=== PATIENT | female | born 1995 | race Caucasian/White ===

== ENCOUNTER 2023-05-23 10:18 | Outpatient (OUT) | payer OTHER, SELFPAY ==
--- NOTE | 2023-05-23 10:35 | US_ITS ---
[address] [address] Patient Name: JAMES BEGUM MRN: [id number] date: 1995 Sex: F Assigned Patient Location: US Current Patient Location: US Accession/Order Number: [id number] Exam Date: 05/23/2023 10:36 Report Date: 05/23/2023 12:15 At the request of: CAILIN VICTORIA Procedure: US OB anatomy EXAMINATION: US OB anatomy HISTORY: screening, , for antomic survey Z36.89 COMPARISON: No relevant comparison available. TECHNIQUE: Transabdominal sonographic examination was performed for obstetrical and evaluation. FINDINGS: Number: 1 Heart Rate: 143.6 bpm H.B. /min Amniotic Fluid Volume: Subjectively normal position: Cephalic presentation, longitudinal lie Placental Location: Posterior fundal, grade 0. Placental edge is 7.1 cm internal cervical os Cervix Length: 4.2 cm , closed Normal anatomy: Lateral ventricles, cerebellum, posterior fossa, nose, lips, orbits, four-chamber heart, diaphragm, stomach, kidneys, abdominal cord insertion, bladder, umbilical arteries, three-vessel cord, spine, extremities Suboptimal visualization: LVOT BIOMETRY: BPD: 4.7 cm 20 weeks 2 days , 56% HC: 18.1 cm 20 weeks 4 days, 60% AC: 16.0 cm 21 weeks 1 days, 76% FL: 3.3 cm 20 weeks 3 days , 55% EFW:377.6 grams; 13 ounces, 81% FL/AC: 20.9 FL/BPD: 70.9 HC/AC: 1.1 GESTATIONAL AGE: Age by EDC: 20 weeks 1 days Age by current US: 20 weeks 4 days MATY by current US: 10/06/2023 MATY by EDC: 10/09/2023 US/US OB anatomy IMPRESSION: Suboptimal visualization of the LVOT, otherwise normal anatomy scan *Reference: [facility] Practice Guideline for the performance of Obstetric Ultrasound Examinations, January 09, 2007. Electronically authenticated by: KB KNAPP Date: 05/23/2023 12:15
== END 2023-05-23 10:19 | disposition home or self-care (01) ==
PROVIDERS: Visit Provider Midwife
DX: Z36.89 Encounter for other specified antenatal screening (principal); Z3A.20 20 weeks gestation of pregnancy
CPT/HCPCS: 76805

== ENCOUNTER 2023-10-03 04:23 | Inpatient (IN) | payer OTHER, SELFPAY ==
[2023-10-03] VITALS (19 sets, daily range): BP systolic 74–157; BP diastolic 59–92; PULSE 82–103; TEMP 36.1–36.7; O2SAT 96
--- OUTSIDE RECORDS SUMMARY | 2023-10-03 04:27 | XMS_ITS | CCD ---
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 Name Role Phone Spasic, Jax Unavailable Unavailable KATE, DILIA T Unavailable Unavailable Spasic, Jax Unavailable Unavailable MISC, DOCTOR Admitting Unavailable MISC, DOCTOR Attending Unavailable MISC, DOCTOR Consulting Unavailable Kate DO, Dilia T Primary Care Provider FLORO, CAILIN Admitting Unavailable FLORO, CAILIN Attending Unavailable KATE, DILIA T Primary Care Unavailable Kate DO, Dilia T Primary Care Provider FLORO, CAILIN L Attending Unavailable FLORO, CAILIN L Attending Unavailable FLORO, CAILIN L Attending Unavailable FLORO, CAILIN L Referring Unavailable KATE, DILIA T Attending Unavailable FLORO, CAILIN L Attending Unavailable FLORO, CAILIN L Attending Unavailable FLORO, CAILIN L Referring Unavailable FLORO, CAILIN L Attending Unavailable FLORO, CAILIN L Attending Unavailable FLORO, CAILIN L Attending Unavailable FLORO, CAILIN L Attending Unavailable FLORO, CAILIN L Referring Unavailable FLORO, CAILIN L Attending Unavailable FLORO, CAILIN L Attending Unavailable Allergies Allergy Classification Reported Allergen(s) Allergy Type Date of Onset Reaction(s) Facility (1 source) penicillin; Translations: [penicillin] Drug Allergy [facility] (6 sources) Penicillins Propensity to adverse reactions to drug [address], [address] [facility] Medications Current Medications Medication Drug Class(es) Dates Sig (Normalized) Sig (Original) acetaminophen 500 mg oral tablet (1 source) Start: 10-05-2021 1,000 mg, Oral, EVERY 8 HOURS PRN, Starting on Tue10/05/21 at 1007, Until Discontinued, Other, Pain (1-10) Give in addition to any other pain medication ordered at same time for any pain indication.&nbsp ; Maximum dose of acetaminophen is 4000mg from all sources in 24 hours. Alternate ibuprofen and acetaminophen every 4 hours. calcium chloride 0.0014 meq/ml / potassium chloride 0.004 meq/ml / sodium chloride 0.103 meq/ml / sodium lactate 0.028 meq/ml injectable solution (2 sources) Start: 10-05-2021 IntraVENous, at 125 mL/hr, CONTINUOUS, Starting on Tue10/05/21 at 1030, Start: 10-05-2021 lactated ringe rs infusion escitalopram 20 mg oral tablet (7 sources) Serotonin Reuptake Inhibitor Start: 01-10-2023 take 1 tablet by mouth once daily escitalopram (Lexapro) 20 MG tablet Indications: Medication refill TAKE 1 TABLET BY MOUTH EVERY DAY 90 tablet 2 01/10/2023 Active Start: 10-07-2021 take 1 tablet by nakia th once daily escitalopram (LEXAPRO) 20 MG tablet Take 1 tablet by mouth nightly 30 tablet 3 10/07/2021 Active Start: 10-05-2021 escitalopram ( LEXAPRO) tablet 20 mg ibuprofen 800 mg oral tablet (2 sources) Nonsteroidal Anti-inflammatory Drug Start: 10-07-2021 take 1 tablet by mouth every eight hours as needed for pain ibuprofen (ADVIL;MOTRIN) 800 MG tablet Take 1 tablet by mouth every 8 hours as needed for Pain 90 tablet 1 10/07/2021 Active Start: 10-06-2021 take 1 dose by mouth every four hours 800 mg, Oral, EVERY 8 HOURS PRN, Starting on Tue10/06/21 at 1530, Until Discontinued, Other, (Pain 1-10) Give in addition to any other pain medication ordered at same time for any pain indication. Once tolerating PO, discontinue Toradol and begin ibuprofen 8 hours after the final dose of Toradol. Alternate ibuprofen and acetaminophen every 4 hours., lanolin 1000 mg/ml topical cream (1 source) Start: 10-05-2021 Topical, EVERY 1 HOUR PRN, Dry Skin, nipple discomfort, Starting on Tue10/05/21 at 1007, Post-op metroNIDAZOLE 500 mg oral tablet (6 sources) Nitroimidazole Antimicrobial Start: 03-29-2023 take 1 tablet by mouth in the morning metroNIDAZOLE (Flagyl) 500 MG tablet Indications: BV (bacterial vaginosis) Take 1 tablet (500 mg) by mouth in the morning and 1 tablet (500 mg) before bedtime. 14 tablet 0 03/29/2023 Active Start: 10-05-2021 End: 10-07-2021 take 1 tablet by mouth every eight hours metroNIDAZOLE (FLAGYL) tablet 500 mg ondansetron 8 mg disintegrating oral tablet (8 sources) Serotonin-3 Receptor Antagonist Start: 03-01-2023 take 1 tablet by mouth every eight hours for nausea ondansetron ODT (Zofran-ODT) 8 MG disintegrating tablet Indications: Nausea/vomiting in Take 1 tablet (8 mg) by mouth every 8 (eight) hours if needed for nausea or vomiting. 20 tablet 1 03/01/2023 Active Start: 10-07-2021 ondansetron (Z OFRAN) tablet 4 mg Start: 10-05-2021 End: 10-05-2021 4 mg, IntraVENous, EVERY 6 H OURS PRN, Starting on Tue10/05/21 at 1007, Until Discontinued, Nausea, nausea, oxyCODONE hydrochloride 5 mg oral tablet (2 sources) Opioid Agonist Start: 10-07-2021 End: 10-10-2021 take 1 tablet by mouth every six hours as needed for pain oxyCODONE (ROXICODONE) 5 MG immediate release tablet Indications: delivery delivered Take 1 tablet by mouth every 6 hours as needed for Pain for up to 3 days. 12 tablet 0 10/07/2021 10/10/2021 Active Start: 10-05-2021 oxyCODONE (ARMAND ICODONE) immediate release tablet 5 mg oxytocin (PITOCIN) 10 unit bolus from the bag (1 source) Start: 10-05-2021 oxytocin (ROSENDO ENRIKE) 10 unit bolus from the bag MV-Min-Fe Fum-FA-DH A ( 1 PO) (1 source) MV-Min- Fe Fum-FA-DHA ( 1 PO) Take by mouth 0 Active 1000 ml sodium chloride 9 mg /ml injection (2 sources) Start: 10-05-2021 IntraVENous, a t 5-250 mL/hr, PRN, if patient receiving piggyback infusions and maintenance fluids are not ordered OR KVO fluids to protect IV site / prevent frequent line interruptions/ long duration, Starting on Tue10/05/21 at 1007 For piggyback infusion, administer at same rate as piggyback for a total of 25 mL. Enter 25 mL into dose field and piggyback rate into rate field of order. If piggyback is infusing at a rate less than 100 mL/hr, enter 25 mL into dose field and 100 mL/hr into rate field of order. For KVO fluids, enter rate of 20 mL/hr or less into rate field of order. Start: 10-05-2021 take 5-40 mL intrave nously once as needed 5-40 mL, IntraVENous, PRN, Starting on Tue10/05/21 at 1007, Until Discontinued, Line Care, After every IV line use For Line Patency: Peripheral IV = 5 mL; Midline or Central Line = 10 mL/lumen. If following IV push medication, administer flush at same rate as the IV push. Flush volume is determined by type of infusion therapy being given. For non-viscous solutions use: Peripheral IV = 5 mL Midline or Central Line = 10 mL/lumen For viscous solutions (i.e. blood components, parenteral nutrition, contrast media, or after obtaining blood sample) use: Peripheral IV = 10 mL Midline or Central Line = 20 mL/lumen Completed/Discontinued Medications Medication Drug Class(es) Dates Sig (Normalized) Sig (Original) 1 ml carboprost 0.25 mg/ml injection (1 source) Prostaglandin Analog Start: 10-05-2021 250 mcg, IntraMUSCular, PRN, Starting on Tue10/05/21 at 1007, Until Discontinued, bleeding May repeat every 15 minutes up to a cumulative maximum dose of 1000 mcg, at physician's request. Post-op citric acid 66.8 mg/ml / sodium citrate 100 mg/ml oral solution (1 source) Calculi Dissolution Agent, Anti-coagulant Start: 10-05-2021 End: 10-05-2021 citric acid-sodium citrate (BICITRA) solution 30 mL Start: 10-05-2021 End: 10-05-2021 citric acid-sodium citrate ( BICITRA) solution 30 mL 50 ml clindamycin 18 mg/ml injection (1 source) Lincosamide Antibacterial Start: 10-05-2021 End: 10-05-2021 clindamycin (CLEOCIN) 900 mg in dextrose 5 % 50 mL IVPB 1 ml diphenhydrAMINE hydrochloride 50 mg/ml cartridge (1 source) Histamine-1 Receptor Antagonist Start: 10-05-2021 25 mg, IntraVENous, EVERY 6 HOURS PRN, Starting on Tue10/05/21 at 1007, Until Discontinued, Itching, Hives, docusate sodium 100 mg oral capsule (1 source) Start: 10-05-2021 take 100 mg by mouth twice daily 100 mg, Oral, 2 TIMES DAILY, First dose on Tue10/05/21 at 1030, Until Discontinued Do not crush or break. docusate sodium 50 mg / sennosides, correction 8.6 mg oral tablet (1 source) Start: 10-05-2021 take 1 tablet by mouth once daily as needed 1 tablet, Oral, DAILY PRN, Starting on Tue10/05/21 at 1007, Until Discontinued, Constipation, 0.4 ml enoxaparin sodium 100 mg/ml prefilled syringe (1 source) Low Molecular Weight Heparin Start: 10-05-2021 inject 40 mg by subcutaneous injection every twenty-four hours 40 mg, SubCUTAneous, EVERY 24 HOURS, First dose on Tue10/05/21 at 2130, Until Discontinued Indication of Use: Prophylaxis-DVT/PE famotidine (PEPCID) 20 mg in sodium chloride (PF) 10 mL injection (1 source) Start: 10-05-2021 End: 10-05-2021 famotidine (PEPCID) 20 mg in sodium chloride (PF) 10 mL injection 1 ml ketorolac tromethamine 30 mg/ml cartridge (1 source) Nonsteroidal Anti-inflammatory Drug, Cyclooxygenase Inhibitor Start: 10-05-2021 End: 10-06-2021 take 1 dose intravenously once daily for pain Ketorolac is contraindicated in patients with advanced renal impairment and in patients at risk of renal failure due to volume depletion. For 65 years of age and older OR weight less than 50 kg, use 15 mg IV every 6 hours; MAX dose: 60 mg/day. Dose greater than 30 mg must be administered via intramuscular route. Do not administer for more than 5 days. 30 mg, IntraVENous, EVERY 6 HOURS, 4 doses, First dose on Tue10/05/21 at 1530, Last dose on Tue10/06/21 at 0930 Give in addition to any other pain medication ordered at same time for any pain indication. & nbsp;Discontinue when able to take PO ibuprofen. labetalol hydrochloride 5 mg/ml injectable solution (2 sources) beta-Adrenergic Stanley Start: 10-05-2021 End: 10-05-2021 labetalol (NORMODYNE;TRANDAT E) injection 40 mg Start: 10-05-2021 End: 10-05-2021 labetalol (NORMODYNE;TRANDAT E) injection 20 mg 500 ml magnesium sulfate 40 mg/ml injection (5 sources) Start: 10-05-2021 End: 10-05-2021 magnesium sulfate 2000 mg in water 50 mL IVPB Start: 10-05-2021 End: 10-05-2021 magnesium sulfate 4000 mg in 100 mL IVPB premix Start: 10-05-2021 End: 10-06-2021 magnesium sulfate (34799 mg/ 500mL infusion) 1 ml methylergonovine maleate 0.2 mg/ml injection (1 source) Ergot Derivative Start: 10-05-2021 200 mcg, IntraMUSCular, PRN, Starting on Tue10/05/21 at 1007, Until Discontinued, Bleeding PRN for post- hemorrhage, if not hypertensive. 2 ml metoclopramide 5 mg/ml prefilled syringe (1 source) Dopamine-2 Receptor Antagonist Start: 10-05-2021 End: 10-05-2021 metoclopramide (REGLAN) injection 10 mg Start: 10-05-2021 End: 10-05-2021 metoclopramide (REGLAN) inje ction 10 mg miSOPROStol 0.1 mg oral tablet (1 source) Prostaglandin E1 Analog Start: 10-05-2021 800 mcg, Rectal, PRN, 1 dose, Starting on Tue10/05/21 at 1007, Until Discontinued, Post- Hemorrhage Notify Physician prior to administration. Post-op 1 ml nalbuphine hydrochloride 10 mg/ml injection (1 source) Opioid Agonist/Antagonist Start: 10-05-2021 10 mg, IntraVENous, EVERY 4 HOURS PRN, Starting on Tue10/05/21 at 1007, Until Discontinued, or itching, Post-op 1 ml naloxone hydrochloride 0.4 mg/ml injection (1 source) Opioid Antagonist Start: 10-05-2021 0.4 mg, IntraVENous, PRN, Starting on Tue10/05/21 at 1007, Until Discontinued, Opioid Reversal, Post-op vitamin 27-1 MG tablet 1 tablet (1 source) Start: 10-07-2021 take 1 tablet by mouth once daily 1 tablet, Oral, DAILY, First dose on Tue10/07/21 at 0900, Until Discontinued Begin when normal bowel activity resumes. simethicone 80 mg chewable tablet (1 source) Start: 10-05-2021 take 80 mg by mouth every six hours as needed 80 mg, Oral, EVERY 6 HOURS PRN, Starting on Tue10/05/21 at 1007, Until Discontinued, Cramping, Flatulence, 1 ml terbutaline sulfate 1 mg/ml injection (1 source) Start: 10-05-2021 End: 10-05-2021 terbutaline (BRETHINE) injection 0.25 mg Start: 10-05-2021 End: 10-05-2021 terbutaline (BRETHINE) injec tion 0.25 mg Problems Problem Classification Problem Date Documented Da te Episodic/Chronic Immunizations and screening for infectious disease (4 sources) Encounter for screening for other viral diseases; Translations: [ENC SCREENING FOR OTH VIRAL DZ] Onset: 08-27-2019 Episodic Inflammatory diseases of female pelvic organs (2 sources) Bacterial vaginosis; Translations: [Acute vaginitis] 03-29-2023 Episodic Other complications of ; puerperium affecting management of mother (2 sources) delivery - delivered; Translations: [Encounter for delivery without indication] Episodic Other and delivery including normal (4 sources) Term ; Translations: [Encounter for supervision of normal , unspecified, unspecified trimester] Onset: 10-05-2021 Episodic Results Test Name Value Interpretation Reference Range Facility US OB FOLLOW UP TRANSABDOMIN AL APPROACHon 09-21-2023 OB FOLLOW UP TRANSABDOMINAL APPROACH FINDINGS: A single, live intrauterine is present with normal cardiac rate of 145 beats per minute. Normal activity and amniotic fluid volume. Amniotic fluid index is 16.0 cm. Morphology is grossly normal. The cervix is not seen due to positioning. The placenta is posterior, Grade 1, not associated with the cervical os. The current sonographic age is 37 weeks and 4 days, based on the following measurements: BPD 9.2cm ( 37weeks, 4 days) Head Circumference 32.9cm (37 weeks, 3 days) Abdominal Circumference 33.8cm (37 weeks, 5 days) Femur Length 7.4cm (37 weeks, 4 days) Presentation cephalic Placenta Posterior Grade 1 Weight (g) by Percentile 63.7 % * These measurements result in an estimated date of delivery of October 08, 2023 The current estimated weight is 3260 grams ( 7 pound, 3 ounces). IMPRESSION: Single, live intrauterine , current sonographic age of 37 weeks and 4 days, with an estimated date of delivery of October 08, 2023. * Estimated Weight (g) by Percentile is based upon an accurate estimated age based on last menstrual period. TRANSCRIBED BY: ELECTRONICALLY SIGNED BY: Panda Baxter MD Normal Not Available US OB FOLLOW UP TRANSABDOMIN AL APPROACHon 08-03-2023 US OB FOLLOW UP TRANSABDOMINAL APPROACH FINDINGS: A single, live intrauterine is present with normal cardiac rate of 125 beats per minute. Normal activity and amniotic fluid volume. Amniotic fluid index is 17 cm. Morphology is grossly normal. The cervix is long and closed, 2.8 cm. The placenta is anterior, not associated with the cervical os. The current sonographic age is 30 weeks and 4 days, based on the following measurements: BPD 7.6 cm (30 weeks, 3 days) Head Circumference 27.9 cm (30 weeks, 4 days) Abdominal Circumference 26.4 cm (30 weeks, 4 days) Femur Length 5.9 cm (30 weeks, 4 days) Presentation Cephalic Placenta Posterior Grade I Weight (g) by Percentile 42.1 % * These measurements result in an estimated date of delivery of October 08, 2023. The current estimated weight is 1597 grams (3 pounds, 8 ounces). IMPRESSION: 1. Single, live intrauterine , current sonographic age of 30 weeks and 4 days, with an estimated date of delivery of October 08, 2023 (prior exam done March 01, 2023 had MATY October 09, 2023) 2. Cervical length 2.8 cm * Estimated Weight (g) by Percentile is based upon an accurate estimated age based on last menstrual period. TRANSCRIBED BY: ELECTRONICALLY SIGNED BY: Panda Baxter MD Normal Not Available Laboratoryon 03-30-2023 C. glabrata RNA ZULEIKA+probe Ql (Vag fld) Not detected NOT DETECTED [facility] Comment on above: Pilar species C. albicans, C. tropicalis, C. parapsilosis, and/or C. dubliniensis can be detected, but not differentiated, in the Pilar spp. result. Laboratory - Microbiology an d Antimicrobial susceptibilityon 03-30-2023 C. trachomatis rRNA ZULEIKA+probe Ql (Unsp spec) Not detected NOT DETECTED [facility] Pilar sp rRNA Probe Ql (Vag fld) Not detected NOT DETECTED [facility] Lactobacillus crispatus+gasseri+je nsenii + Gardnerella vaginalis + Atopobium vaginae rRNA ZULEIKA+probe Ql (Vag fld) Positive Abnormal NEGATIVE [facility] N. gonorrhoeae rRNA ZULEIKA+probe Ql (Unsp spec) Not detected NOT DETECTED [facility] Comment on above: For additional infor mation, please refer to https://education.[employer]/faq/EDJ671 (This link is being provided for information/ educational purposes only.) T. vaginalis rRNA ZULEIKA+probe Ql (Unsp spec) Not detected NOT DETECTED [facility] No Panel Informationon 03-30 Interpretation and review of laboratory results Abnormal [facility] Performing Organizat ion Information Site ID: QPT Name: [facility] Address: [address] [place] [address], [address] [place] [id number] Director: Mark Perez MD Formerly [facility] US OB < 14 WEEKS EARLYon US OB < 14 WEEKS EARLY EXAMINATION: ULTRASOUND UTERUS, FIRST TRIMESTER REASON FOR EXAMINATION: Amenorrhea. LMP: 01/02/2023 dates from LMP: 8 weeks 2 day. MATY(LMP): 10/09/2023 COMPARISONS: NONE FINDINGS: Transabdominal exam was performed. Transvaginal exam was performed to better visualize the uterine contents and adnexa. On the transabdominal exam, the uterus is anteverted and measures 10.5 x 7.3 x 6.9 cm. A single intrauterine gestational sac is present. A pole is visualized. A yolk sac is visualized. The crown-rump length measures 1.77 cm. The average ultrasound gestational age measures 8 weeks days +/- days. heart rate measures 160 bpm. The maternal right ovary is not identified The maternal left ovary measures 3.6 x 2.5 x 2.1 cm. There is normal sonographic appearance with normal flow. No free fluid is visualized. No sign of subchorionic hemorrhage. There is no abnormal adnexal mass. IMPRESSION: LIVE SINGLE INTRAUTERINE , APPROXIMATELY 8 WEEKS 2 DAYS GESTATIONAL AGE. ELECTRONICALLY SIGNED BY: Angelito Palacios MD Normal Not Available Hemoglobinon 10-06-2021 Hemoglobin (Bld) [Mass/Vol] 8.4 g/dL Low 11.9-15.1 [facility] Comment on above: Performed By: #### H GB #### [facility] [address] [place] [address] Egyptologist: David Franklin MD Hemoglobin (Bld) [Mass/Vol] 8.4 g/dL Low 11.9 - 15.1 g/dL [facility] Interpretation and review of laboratory results Abnormal [facility] Magnesiumon 10-06-2021 Magnesium [Mass/Vol] 4.9 mg/dL Critically high 1.6-2.6 [facility] Comment on above: Performed By: #### L DRE Jennings CDP, CP #### [facility] [address] [place] [address] Egyptologist: David Franklin MD Interpretation and review of laboratory results Abnormal [facility] Magnesium [Mass/Vol] 4.9 mg/dL Critically high 1.6 - 2.6 mg/dL [facility] Magnesium [Mass/Vol] 4.5 mg/dL Critically high 1.6-2.6 [facility] Comment on above: Performed By: #### L D, URI, CDP, CP #### [facility] [address] [place] [address] Egyptologist: David Franklin MD Interpretation and review of laboratory results Abnormal [facility] Magnesium [Mass/Vol] 4.5 mg/dL Critically high 1.6 - 2.6 mg/dL [facility] CBC with Auto Differentialon 10-05-2021 Absolute Eos # 0.03 [facility] Absolute Immature Granulocyte 0.07 [facility] Absolute Lymph # 1.[address] [facility] Absolute Niobrara # 1.06 [facility] Basophils (Bld) [#/Vol] 10*3/uL [facility] Basophils/100 WBC (Bld) 0 % 0 - 2 % [facility] Eosinophils/100 WBC (Bld) 0 % Low 1 - 4 % [facility] Hematocrit (Bld) [Volume fraction] 38.2 % 36.3 - 47.1 % [facility] Hemoglobin (Bld) [Mass/Vol] 12.1 g/dL 11.9 - 15.1 g/dL [facility] Immature granulocytes/100 WBC (Bld) 1 % High 0 [facility] Interpretation and review of laboratory results Abnormal [facility] Lymphocytes/100 WBC (Bld) 15 % Low 24 - 43 % [facility] MCH (RBC) [Entitic mass] 30.5 pg 25.2 - 33.5 pg [facility] MCHC (RBC) [Mass/Vol] 31.7 g/dL 28.4 - 34.8 g/dL [facility] MCV (RBC) [Entitic vol] 96.2 fL 82.6 - 102.9 fL [facility] Monocytes/100 WBC (Bld) 9 % 3 - 12 % [facility] NRBC Automated 0.0 0.0 per 100 WBC [facility] Platelet distribution width (Bld) [Ratio] 13.0 % 11.8 - 14.4 % [facility] Platelet mean volume (Bld) [Entitic vol] 10.1 fL 8.1 - 13.5 fL [facility] Platelets (Bld) [#/Vol] 263 10*3/uL [facility] RBC (Bld) [#/Vol] 3.97 10*6/uL 3.95 - 5.11 m/uL [facility] Segmented neutrophils/100 WBC (Bld) 75 % High 36 - 65 % [facility] Segs Absolute 8.75 High [facility] WBC (Bld) [#/Vol] 11.6 10*3/uL High [facility] CBC with Diffon 10-05-2021 Abs. Basophil <0.03 Normal 0.00-0.20 [facility] Comment on above: Performed By: #### DRE Adam CDP, CP #### [facility] [address] [place] [address] [place] [id number] Egyptologist: David Franklin MD Abs.Imm.Granulocyte 0.07 k/uL Normal 0.00-0.30 [facility] Comment on above: Performed By: #### DRE Adam CDP, CP #### [address] [place], [place] [address] Egyptologist: David Franklin MD Abs.Neutrophil (Seg) 8.75 k/uL High 1.50-8.10 [facility] Comment on above: Performed By: #### DRE Adam CDP, CP #### [facility] [address] [place] [address] Dr. [place], [place] [address] Egyptologist: David Franklin MD Basophils/100 WBC (Bld) 0 % Normal 0-2 [facility] Comment on above: Performed By: #### DRE Adam CDP, CP #### [facility] [address] [place] [address] Dr[place] [id number] Egyptologist: David Franklin MD Eosinophils (Bld) [#/Vol] 0.03 10*3/uL Normal 0.00-0.44 [facility] Comment on above: Performed By: #### L Michaela, URMichael CDP, CP #### [address] [place], [place] [address] Egyptologist: David Franklin MD Eosinophils/100 WBC (Bld) 0 % Low 1-4 [facility] Comment on above: Performed By: #### L Michaela, URMichael, CDP, CP #### [address] [place], [place] [address] Egyptologist: David Franklin MD Erythrocyte distribution width (RBC) [Ratio] 13.0 % Normal 11.8-14.4 [facility] Comment on above: Performed By: #### L Michaela, MARE ERICKSON, CP #### [address] [place], [facility] Egyptologist: David Franklin MD Hematocrit (Bld) [Volume fraction] 38.2 % Normal 36.3-47.1 [facility] Comment on above: Performed By: #### L Michaela, MARE ERICKSON, CP #### [address] [place], [place] [address] Egyptologist: David Franklin MD Hemoglobin (Bld) [Mass/Vol] 12.1 g/dL Normal 11.9-15.1 [facility] Comment on above: Performed By: #### L Michaela, MARE ERICKSON, CP #### [address] [place], [place] [address] Egyptologist: David Franklin MD Immature granulocytes/100 WBC (Bld) 1 % High 0 [facility] Comment on above: Performed By: #### L Michaela, MARE ERICKSON, CP #### [address] [place], [facility] Egyptologist: David Franklin MD Lymphocytes (Bld) [#/Vol] 1.68 10*3/uL Normal 1.10-3.70 [facility] Comment on above: Performed By: #### L Michaela, MARE ERICKSON, CP #### [facility] [address] [place], [facility] Egyptologist: David Franklin MD Lymphocytes/100 WBC (Bld) 15 % Low 24-43 [facility] Comment on above: Performed By: #### L DRE Jennings CDP, CP #### [facility] [address] [place], [facility] Egyptologist: David Franklin MD MCH (RBC) [Entitic mass] 30.5 pg Normal 25.2-33.5 [facility] Comment on above: Performed By: #### DRE Adam CDP, CP #### [address] [place], [facility] Egyptologist: David Franklin MD MCHC (RBC) [Mass/Vol] 31.7 g/dL Normal 28.4-34.8 [facility] Comment on above: Performed By: #### DRE Adam CDP, CP #### [address] [place], [place] [address] Egyptologist: David Franklin MD MCV (RBC) [Entitic vol] 96.2 fL Normal 82.6-102.9 [facility] Comment on above: Performed By: #### DRE Adam CDP, CP #### [address] [place], [place] [address] Egyptologist: David Franklin MD Monocytes (Bld) [#/Vol] 1.06 10*3/uL Normal 0.10-1.20 [facility] Comment on above: Performed By: #### L Michaela, MARE ERICKSON, CP #### [facility] [address] [place], [place] 1455383 Egyptologist: David Farnklin MD Monocytes/100 WBC (Bld) 9 % Normal 3-12 [facility] Comment on above: Performed By: #### L Michaela, DRE CDP, CP #### [facility] [address] [place], [place] [address] Egyptologist: David Franklin MD Neutrophil (Seg) 75 % High 36-65 [facility] Comment on above: Performed By: #### L Michaela, DRE CDP, CP #### [facility] [address] [place], [place] [address] Egyptologist: David Franklin MD NRBC Automated 0.0 per 100 WBC Normal 0.0 [facility] Comment on above: Performed By: #### L Michaela, MARE ERICKSON, CP #### [address] [place], [facility] Egyptologist: David Franklin MD Platelet mean volume (Bld) [Entitic vol] 10.1 fL Normal 8.1-13.5 [facility] Comment on above: Performed By: #### L DRE Jennings CDP, CP #### [address] [place], [place] [address] Egyptologist: David Franklin MD Platelets (Bld) [#/Vol] 263 10*3/uL Normal 138-453 [facility] Comment on above: Performed By: #### L DRE Jennings CDP, CP #### [address] [place], [place] [address] Egyptologist: David Franklin MD RBC (Bld) [#/Vol] 3.97 10*6/uL Normal 3.95-5.11 [facility] Comment on above: Performed By: #### L DRE Jennings CDP, CP #### [facility] [address] [place], [place] 1158783 Egyptologist: David Franklin MD WBC (Bld) [#/Vol] 11.6 10*3/uL High 3.5-11.3 [facility] Comment on above: Performed By: #### L DRE Jennings CDP, CP #### [facility] [address] [place] [address] Egyptologist: David Franklin MD Comp Metabolic Profon 2021 (cont.) Normal [facility] Comment on above: Result Comment: Aver age GFR for 20-29 years old: 116 mL/min/1.73sq m Chronic Kidney Disease: <60 mL/min/1.73sq m Kidney failure: <15 mL/min/1.73sq m eGFR calculated using average adult body mass. Additional eGFR calculator available at: http://www.ConforMIS/multiple_crcl_2011.htm Performed By: #### L DRE Jennings CDP, CP #### [facility] [address] [place] [address] Egyptologist: David Franklin MD Albumin [Mass/Vol] 3.6 g/dL Normal 3.5-5.2 [facility] Comment on above: Performed By: #### DRE Adam CDP, CP #### [facility] [address] [place] [address] Egyptologist: David Franklin MD Albumin/Glob Ratio 1.3 Normal 1.0-2.5 [facility] Comment on above: Performed By: #### DRE Adam CDP, CP #### [facility] [address] [place] [address] Egyptologist: David Franklin MD Alkaline Phos 76 U/L Normal 35-104 [facility] Comment on above: Performed By: #### L DRE Jennings CDP, CP #### [facility] [address] [place] [address] Egyptologist: David Franklin MD ALT [Catalytic activity/Vol] 11 U/L Normal 5-33 [facility] Comment on above: Performed By: #### L D, URI, CDP, CP #### [facility] [address] [place] [address] Dr[address] [place], [place] 0983483 Egyptologist: David Franklin MD Anion gap [Moles/Vol] 19 mmol/L High 9-17 [facility] Comment on above: Performed By: #### L D, URI, CDP, CP #### [address] [place], [place] 7773283 Egyptologist: David Franklin MD AST [Catalytic activity/Vol] 14 U/L Normal <32 [facility] Comment on above: Performed By: #### L D, URI, CDP, CP #### [address] [place], [place] 5726083 Egyptologist: David Franklin MD Bilirubin [Mass/Vol] 0.21 mg/dL Low 0.3-1.2 [facility] Comment on above: Performed By: #### L D, URI, CDP, CP #### [address] [place], [place] 5280383 Egyptologist: David Franklin MD BUN/CRE Ratio 15 Normal 9-20 [facility] Comment on above: Performed By: #### L D, URI, CDP, CP #### [address] [place], [place] 7995483 Egyptologist: David Franklin MD Calcium [Mass/Vol] 9.5 mg/dL Normal 8.6-10.4 [facility] Comment on above: Performed By: #### L D, URI, CDP, CP #### [address] [place] [address] Egyptologist: David Franklin MD Chloride [Moles/Vol] 101 mmol/L Normal 98-107 [facility] Comment on above: Performed By: #### L D, URI, CDP, CP #### [facility] [address] [place] [address] Dr[place], [place] 1328183 Egyptologist: David Franklin MD CO2 [Moles/Vol] 17 mmol/L Low 20-31 [facility] Comment on above: Performed By: #### L D, URI, CDP, CP #### [facility] [address] [place], [place] 3896483 Egyptologist: David Franklin MD Creatinine [Mass/Vol] 0.47 mg/dL Low 0.50-0.90 [facility] Comment on above: Performed By: #### L D, URI, CDP, CP #### [facility] [address] [place] [address] Dr. [place], [place] 2996983 Egyptologist: David Franklin MD GFR, Amer >60 Normal >60 [facility] Comment on above: Performed By: #### L D, URI, CDP, CP #### [facility] [address] [place] [place] [address] Dr[place], [place] 0114083 Egyptologist: David Franklin MD GFR,non Amer >60 Normal >60 [facility] Comment on above: Performed By: #### L D, URI, CDP, CP #### [facility] [address] [place] [address] Dr[place], [place] 5068583 Egyptologist: David Franklin MD Glucose [Mass/Vol] 88 mg/dL Normal 70-99 [facility] Comment on above: Performed By: #### L D, URI, CDP, CP #### [facility] [address] [place], [place] 8562883 Egyptologist: David Franklin MD Potassium [Moles/Vol] 3.9 mmol/L Normal 3.7-5.3 [facility] Comment on above: Performed By: #### L D, URI, CDP, CP #### [facility] [address] [place], [place] 7778183 Egyptologist: David Franklin MD Protein [Mass/Vol] 6.3 g/dL Low 6.4-8.3 [facility] Comment on above: Performed By: #### L Michaela, MARE ERICKSON, CP #### [facility] [address] [place] [address] Egyptologist: David Franklin MD Sodium [Moles/Vol] 137 mmol/L Normal 135-144 [facility] Comment on above: Performed By: #### L Michaela, DRE, MARE, CP #### [facility] [address] [place] [address] Egyptologist: David Franklin MD Staging: Normal [facility] Comment on above: Result Comment: Stag e 1: Some kidney damage normal GFR Stage 2: Mild kidney damage GFR 60-89 Stage 3: Moderate kidney damage GFR 30-59 Stage 4: Severe kidney damage GFR 15-29 Stage 5: Severe kidney damage GFR <15 ESRD - chronic treatment by dialysis or transplant Performed By: #### L Michaela, MARE ERICKSON, CP #### [facility] [address] [place] [address] Egyptologist: David Franklin MD Urea nitrogen [Mass/Vol] 7 mg/dL Normal 6-20 [facility] Comment on above: Performed By: #### L Michaela, DRE, MARE, CP #### [facility] [address] [place] [address] Egyptologist: David Franklin MD Comprehensive metabolic pane [facility] 10-05-2021 Albumin [Mass/Vol] 3.6 g/dL 3.5 - 5.2 g/dL [facility] Albumin/Globulin [Mass ratio] 1.3 {ratio} [facility] ALP (Bld) [Catalytic activity/Vol] 76 U/L 35 - 104 U/L [facility] ALT [Catalytic activity/Vol] 11 U/L 5 - 33 U/L [facility] Anion gap [Moles/Vol] 19 mmol/L High 9 - 17 mmol/L [facility] AST [Catalytic activity/Vol] 14 U/L <32 [facility] Bilirubin [Mass/Vol] 0.21 mg/dL Low 0.3 - 1 .2 mg/dL [facility] Calcium [Mass/Vol] 9.5 mg/dL 8.6 - 10. 4 mg/dL [facility] Chloride [Moles/Vol] 101 mmol/L 98 - 10 7 mmol/L [facility] CO2 [Moles/Vol] 17 mmol/L Low 20 - 31 mmol/L [facility] Creatinine [Mass/Vol] 0.47 mg/dL Low 0.50 - 0.90 mg/dL [facility] Free PSA/Total PSA [Mass fraction] 6.3 g/dL Low 6.4 - 8.3 g/dL [facility] GFR >60 >60 mL/min [facility] GFR Non- >60 >60 mL/min [facility] Glucose [Mass/Vol] 88 mg/dL 70 - 99 mg/dL [facility] Interpretation and review of laboratory results Abnormal [facility] Potassium [Moles/Vol] 3.9 mmol/L 3.7 - 5.3 mmol/L [facility] Sodium [Moles/Vol] 137 mmol/L 135 - 144 mmol/L [facility] Urea nitrogen (BldV) [Mass/Vol] 7 mg/dL 6 - 20 mg/dL [facility] Urea nitrogen/Creatinine (Bld) [Mass ratio] 15 [facility] DRUG SCREEN MULTI URINEon Amphetamine Screen, Ur Negative NEGATIVE [facility] Barbiturate Screen, Ur Negative NEGATIVE [facility] Benzodiazepine Screen, Urine Negative NEGATIVE [facility] Buprenorphine Urine Negative NEGATIVE [facility] Cannabinoid Scrn, Ur Negative NEGATIVE [facility] Cocaine Metabolite, Urine Negative NEGATIVE [facility] Methadone Screen, Urine Negative NEGATIVE [facility] Methamphetamine, Urine Negative NEGATIVE [facility] Opiates, Urine Negative NEGATIVE [facility] Oxycodone Screen, Ur Negative NEGATIVE [facility] Phencyclidine, Urine Negative NEGATIVE [facility] Propoxyphene, Urine Negative NEGATIVE [facility] Tricyclic Antidepressants, Urine Negative NEGATIVE [facility] Comment on above: Drug screen results are to be used for medical purposes only. All positive results are unconfirmed. Testing for employment or legal uses should be sent to a reference laboratory for confirmation. [facility] Drug Scr, Abuse, Uron 2021 Amphetamine(s),Ur Negative Normal [facility] Comment on above: Performed By: #### L D, URI, CDP, CP #### [facility] [address] [place] [address] [place] [id number] Egyptologist: David Franklin MD Barbiturate(s),Ur Negative Normal [facility] Comment on above: Performed By: #### L D, URI, CDP, CP #### [address] [place] [id number] Egyptologist: David Franklin MD Benzodiazepine(s) Negative [facility] Comment on above: Performed By: #### L D, URI, CDP, CP #### [address] [place] [address] Egyptologist: David Franklin MD Buprenorphrine, Ur Negative Normal [facility] Comment on above: Performed By: #### L D, URI, CDP, CP #### [address] [place], [place] [address] Egyptologist: David Franklin MD Cannabinoid(s),Ur Negative Normal [facility] Comment on above: Performed By: #### L D, URI, CDP, CP #### [address] [place] [id number] Egyptologist: David Franklin MD Cocaine Metabolite Negative [facility] Comment on above: Performed By: #### L D, URI, CDP, CP #### [facility] [address] [place] [address] Dr. [place], [place] 2444083 Egyptologist: David Franklin MD Methadone Ql (U) Negative Normal [facility] Comment on above: Performed By: #### L D, URI, CDP, CP #### [facility] [address] [place] [address] Dr. [place], [place] 9257783 Egyptologist: David Franklin MD Methamphetamine, Ur Negative Normal NEG [facility] Comment on above: Performed By: #### L D, URI, CDP, CP #### [facility] [address] [place] [place] [address] Dr[place], [place] [phone] Egyptologist: David Franklin MD Opiate(s), Ur Negative Normal [facility] Comment on above: Performed By: #### L D, URI, CDP, CP #### [address] [place], [place] 1555183 Egyptologist: David Franklin MD Oxycodone, Urine Negative Normal [facility] Comment on above: Performed By: #### L D, URI, CDP, CP #### [address] [place], [place] 8896483 Egyptologist: David Franklin MD Phencyclidine, Ur Negative Normal [facility] Comment on above: Performed By: #### L D, URI, CDP, CP #### [address] [place], [place] 9278883 Egyptologist: David Franklin MD Propoxyphene,Urine Negative Normal NEG [facility] Comment on above: Performed By: #### L D, URI, CDP, CP #### [facility] [address] [place] [address] Dr. [place], [place] [phone] Egyptologist: David Franklin MD Tricyclic antidepressants Screen Ql (U) Negative Normal [facility] Comment on above: Result Comment: Drug screen results are to be used for medical purposes only. All positive results are unconfirmed. Testing for employment or legal uses should be sent to a reference laboratory for confirmation. Performed By: #### L DRE Jennings CDP, CP #### [facility] [address] [place] [address] Egyptologist: David Franklin MD Laboratory - Chemistry and C hemistry - challengeon 10-05-2021 GFR/1.73 sq M.predicted MDRD (S/P/Bld) [Vol rate/Area] [facility] Comment on above: Average GFR for 20-2 9 years old: 116 mL/min/1.73sq m Chronic Kidney Disease: <60 mL/min/1.73sq m Kidney failure: <15 mL/min/1.73sq m eGFR calculated using average adult body mass. Additional eGFR calculator available at: http://www.ConforMIS/multiple_crcl_2012.htm Stage 1: Some kidney damage normal GFR Stage 2: Mild kidney damage GFR 60-89 Stage 3: Moderate kidney damage GFR 30-59 Stage 4: Severe kidney damage GFR 15-29 Stage 5: Severe kidney damage GFR <15 ESRD - chronic treatment by dialysis or transplant Lactate Dehydrogenaseon 09-10 LDH [Catalytic activity/Vol] 158 U/L Normal 135-214 [facility] Comment on above: Performed By: #### L DRE Jennings CDP, CP #### [facility] [address] [place] [address] Egyptologist: David Franklin MD LD 158 U/L 135 - 214 U/L [facility] Magnesiumon 10-05-2021 Magnesium [Mass/Vol] 4.2 mg/dL Critically high 1.6-2.6 [facility] Comment on above: Performed By: #### M G #### [facility] [address] [place] [address] Egyptologist: David Franklin MD Interpretation and review of laboratory results Abnormal [facility] Magnesium [Mass/Vol] 4.2 mg/dL Critically high 1.6 - 2.6 mg/dL [facility] Magnesium [Mass/Vol] 3.9 mg/dL Critically high 1.6-2.6 [facility] Comment on above: Performed By: #### M G #### [facility] [address] [place] [address] Dr. [place], [place] 1575783 Egyptologist: David Franklin MD Interpretation and review of laboratory results Abnormal [facility] Magnesium [Mass/Vol] 3.9 mg/dL Critically high 1.6 - 2.6 mg/dL [facility] No Panel Informationon 10-05 [facility] Protein / Creatinine Ratio, Urineon 10-05-2021 Creatinine, Ur 64.0 mg/dL 28.0 - 217.0 mg/dL [facility] Protein (U) [Mass/Vol] 9 mg/dL [facility] Comment on above: No normal range esta blished. Urine Total Protein Creatinine Ratio 0.14 [facility] Protein,Tot,[place] Uron 2021 Creatinine [Mass/Vol] 64.0 mg/dL Normal 28.0-217.0 [facility] Comment on above: Performed By: #### U RTPRT #### [facility] [address] [place] [address] [place] [address] Egyptologist: David Franklin MD Tot Prot. Conc. 9 mg/dL Normal [facility] Comment on above: Result Comment: No n ormal range established. Performed By: #### U RTPRT #### [facility] [address] [place], [place] 5709783 Egyptologist: David Franklin MD TP/Cre Ratio 0.14 Normal 0.00-0.20 [facility] Comment on above: Performed By: #### U RTPRT #### [facility] [address] [place], [place] 9125083 Egyptologist: David Franklin MD TYPE AND SCREENon 10-05-2021 ABO/Rh Positive [facility] Arm Band Number [id number] [facility] Expiration Date 10/08/2021,2359 [facility] Type + Screenon 10-05-2021 Type + Screen Sample Expiration 10/08/2021,2359 Arm Band Number [id number] ABO/Rh(D) B POSITIVE Antibody Screen NEGATIVE Normal [facility] Comment on above: Performed By: #### T YS #### [facility] [address] [place] [address] Egyptologist: David Franklin MD Uric Acidon 10-05-2021 Urate [Mass/Vol] 5.4 mg/dL Normal 2.4-5.7 [facility] Comment on above: Performed By: #### L D, URI, CDP, CP #### [facility] [address] [place] [address] [place] [address] Egyptologist: David Franklin MD Uric acidon 10-05-2021 Urate [Mass/Vol] 5.4 mg/dL 2.4 - 5.7 mg/dL [facility] Urinalysison 10-05-2021 Bilirubin Urine Negative NEGATIVE [facility] Color, UA Yellow Yellow [facility] Glucose, Ur Negative NEGATIVE [facility] Ketones Ql (U) Negative NEGATIVE [facility] Leukocyte esterase Test strip Ql (U) Negative NEGATIVE [facility] Nitrite, Urine Negative NEGATIVE [facility] pH, UA 7.0 [facility] Protein, UA Negative NEGATIVE [facility] Specific Willow, UA 1.015 [facility] Turbidity UA Clear Clear [facility] Urine Hgb Negative NEGATIVE [facility] Urobilinogen, Urine Normal Normal [facility] Urinalysis, Routineon 2021 Bilirubin, SemiQt,Ur Negative Normal NEG [facility] Comment on above: Performed By: #### U A, YAO #### [facility] [address] [place], [place] [phone] Egyptologist: David Franklin MD Blood, Urine Negative Normal [facility] Comment on above: Performed By: #### U A, YAO #### [facility] [address] [place], [place] 1655883 Egyptologist: David Franklin MD Clarity (U) Clear Normal CLEAR [facility] Comment on above: Performed By: #### U A, YAO #### [facility] [address] [place], [place] 7476583 Egyptologist: David Franklin MD Color (U) Yellow Normal YEL [facility] Comment on above: Performed By: #### U A, YAO #### [facility] [address] [place], [place] [phone] Egyptologist: David Franklin MD Glucose Ql (U) Negative Normal [facility] Comment on above: Performed By: #### U A, YAO #### [facility] [address] [place], [place] 3442983 Egyptologist: David Franklin MD Ketones Ql (U) Negative Normal NEG [facility] Comment on above: Performed By: #### U A, YAO #### [facility] [address] [place], [place] 7477683 Egyptologist: David Franklin MD Leukocyte esterase Test strip Ql (U) Negative Normal [facility] Comment on above: Performed By: #### U A, YAO #### [facility] [address] [place], [place] 2443083 Egyptologist: David Franklin MD Nitrite,Ur Negative Normal [facility] Comment on above: Performed By: #### U A, YAO #### [facility] [address] [place], [place] 5163683 Egyptologist: David Franklin MD PH,Ur 7.0 Normal 5.0-9.0 [facility] Comment on above: Performed By: #### U A, YAO #### [facility] [address] [place], [place] 2958083 Egyptologist: David Franklin MD Protein Ql (U) Negative Normal NEG [facility] Comment on above: Performed By: #### U A, YAO #### [facility] [address] [place], [place] 8441783 Egyptologist: David Franklin MD Spec. Willow,Ur 1.015 Normal 1.010-1.02 0 [facility] Comment on above: Performed By: #### U A, YAO #### [address] [place], [place] 4818483 Egyptologist: David Franklin MD Urobilinogen,Ur Normal Normal NORM [facility] Comment on above: Performed By: #### U A, YAO #### [facility] [address] [place], [place] [phone] Egyptologist: David Franklin MD GBS, External Resulton 09-16 GBS, External Result Negative [facility] [employer] Phone: Verified with Tomy Gibson RN [facility] [employer] Phone: [facility] [employer] Phone: Q - STREP B WITH SUSCEPTon 0 09-16-2021 CULTURE, GROUP B STREP WITH SUSCEPTIBILITY SEE NOTE Normal [facility] Comment on above: Order Comment: [facility] performed at: QPT, [facility], [address] [place] [address], [address] [place] [address], [place], [address], [employer] Flooring Installer: Mark Perez MD [facility] Date/Time: [facility] Results Received Date/Time: [facility] Reported Date/Time: FASTING: NO Result Comment: CULT URE, GROUP B STREP WITH SUSCEPTIBILITY Micro Number: [id number] Test Status: Final Specimen Source: Not given Specimen Quality: Adequate Result: No group B Streptococcus isolated Note per CDC guidelines optimal recovery is achieved by swabbing both the lower vagina and rectum (through the anal sphincter). Performed By: #### 1 [id number] #### [facility] Default [address] [place] [address] [facility] 08-05-2021 US OB Growth FINDINGS: Comparison is made with the prior examination of May 27, 2021. A single, viable intrauterine is present with adequate cardiac (145 beats per minute) and activity and amniotic fluid volume. Amniotic fluid index is 16.0 cm. Morphology is grossly normal. The cervix is long and closed, 4.4 cm. The placenta is anterior, not associated with the cervical os. The current sonographic age is 30 weeks and 2 days, based on the following measurements: BPD 7.5 cm (30 weeks, 1 day) Head Eaaksvssphpjx79.6 cm (30 weeks, 1 day) Abdominal Koraiawtvyyzb70.1 cm (30 weeks, 1 day) Femur Length 5.9 cm (30 weeks, 5 days) PresentationCephalic Placenta Anterior Grade I Weight (g) by Percentile 54.0%* These measurements result in an estimated date of delivery of October 12, 2021. The current estimated weight is 1553 grams (3 pounds, 7 ounces). IMPRESSION: Single, viable intrauterine , current sonographic age of 30 weeks and 2 days, with an estimated date of delivery of October 12, 2021. Estimated date of delivery on the prior examination was October 13, 2021. *Estimated Weight (g) by Percentile is based upon an accurate estimated age based on last menstrual period. Report reported and signed by Panda Baxter on 08/05/2021 1117 Normal [facility] Q - CBC (H/H,RBC,INDICES,WBC ,PLT)on 07-22-2021 Erythrocyte distribution width (RBC) [Ratio] 12.2 % Normal 11.0-15.0 [facility] Comment on above: Order Comment: [facility] performed at: QPT, [facility], [address] [facility], [address] [place], [address], [employer] Flooring Installer: Mark Perez MD [facility] Date/Time: [facility] Results Received Date/Time: [facility] Reported Date/Time: Performed By: #### 1 41A, [id number] #### [facility] [address] [place] [address] Hematocrit (Bld) [Volume fraction] 33.4 % Low 35.0-45.0 [facility] Comment on above: Order Comment: [facility] performed at: [employer], [employer] [facility], [address] [place] [address], [address] [place] [address], [phone], [employer] Floor[employer] Installer: Mark Perez MD [facility] Date/Time: [facility] Results Received Date/Time: [facility] Reported Date/Time: Performed By: #### 1 41A, [id number] #### [facility] [address] [place] [address] Hemoglobin (Bld) [Mass/Vol] 11.3 g/dL Low 11.7-15.5 [facility] Comment on above: Order Comment: [facility] performed at: [employer] [facility], [address] [place] [address], [address] [place] [address], [address] [place] [address], Vinyl Flooring Installer: Mark Perez MD [facility] Date/Time: [facility] Results Received Date/Time: [facility] Reported Date/Time: Performed By: #### 1 41A, [id number] #### [facility] Default [address] [place] [address] MCH (RBC) [Entitic mass] 30.8 pg Normal 27.0-33.0 [facility] Water Quality Specialist Comment on above: Order Comment: [facility] Testing performed at: [employer], [facility], [address] [place] [address], [address] [place] [address], [address] [place] [address], Vinyl Flooring Installer: Mark Perez MD [facility] Date/Time: [facility] Results Received Date/Time: [facility] Reported Date/Time: Performed By: #### 1 41A, [id number] #### [facility] Default [address] [place] [address] MCHC (RBC) [Mass/Vol] 33.8 g/dL Normal 32.0-36.0 [facility] Water Quality Specialist Comment on above: Order Comment: [facility] Testing performed at: [employer], [facility], [address] [place] [address], [address] [place] [address], [address] [place] [address], Vinyl Flooring Installer: Mark Perez MD [facility] Date/Time: [facility] Results Received Date/Time: [facility] Reported Date/Time: Performed By: #### 1 41A, [id number] #### [facility] Default [address] [place] [address] MCV (RBC) [Entitic vol] 91.0 fL Normal 80.0-100.0 [facility] Water Quality Specialist Comment on above: Order Comment: [facility] performed at: [employer], [facility], [address] [place] [address], [address] [place] [address], [address] [place] [address], Vinyl Flooring Installer: Mark Perez MD [facility] Date/Time: [facility] Results Received Date/Time: [facility] Reported Date/Time: Performed By: #### 1 41A, [id number] #### [facility] Default [address] [place] [address] Platelet mean volume (Bld) [Entitic vol] 9.8 fL Normal 7.5-12.5 [facility] Water Quality Specialist Comment on above: Order Comment: [facility] performed at: [employer], [facility], [address] [place] [address], [address] [place] [address], [address] [place] [address], Vinyl Flooring Installer: Mark Perez MD [facility] Date/Time: [facility] Results Received Date/Time: [facility] Reported Date/Time: Performed By: #### 1 41A, [id number] #### [facility] Default [address] [place] [address] Platelets (Bld) [#/Vol] 271 10*3/uL Normal 140-400 [facility] Comment on above: Order Comment: [facility] performed at: [employer], [facility], [address] [place] [address], [address] [place] [address], [address] [place] [address], Vinyl Flooring Installer: Mark Perez MD [facility] Date/Time: [facility] Results Received Date/Time: [facility] Reported Date/Time: Performed By: #### 1 41A, [id number] #### [facility] Default [address] [place] [address] RBC (Bld) [#/Vol] 3.67 10*6/uL Low 3.80-5.10 [facility] Specialist Comment on above: Order Comment: [facility] performed at: [employer], [facility], [address] [place] [address], [address] [place] [address], [address] [place] [address], Vinyl Flooring Installer: Mark Perez MD [facility] Date/Time: [facility] Results Received Date/Time: [facility] Reported Date/Time: Performed By: #### 1 41A, [id number] #### [facility] Default [address] [place] [address] WBC (Bld) [#/Vol] 6.8 10*3/uL Normal 3.8-10.8 [facility] Water Quality Specialist Comment on above: Order Comment: [facility] performed at: [employer], [facility], [facility], [address] [place] [address], [address] [place] [address], Vinyl Flooring Installer: Mark Perez MD [facility] Date/Time: [facility] Results Received Date/Time: [facility] Reported Date/Time: Performed By: #### 1 41A, [id number] #### [facility] Default [address] [place] [address] Q - GLUCOSE,GESTATIONAL SCRE EN(50G)-135 CUTOFFon 07-22-2021 Glucose [Mass/Vol] 120 mg/dL Normal <135 Arielle garcia [place] Water Quality Specialist Comment on above: Order Comment: [facility] performed at: [facility], [facility], [address], [address] [place], [address], Vinyl Flooring Installer: Mark Perez MD [facility] Date/Time: [id number] [facility] Results Received Date/Time: [id number] [facility] Reported Date/Time: [id number] Performed By: #### 1 41A, [id number] #### [facility] Default [address] [place] [address] OB 2nd/3rd Trimesteron OB 2nd/3rd Trimester FINDINGS: Comparison is made with the prior examination of March 02, 2021. A single, viable intrauterine is present with adequate cardiac (151 beats per minute) and activity and amniotic fluid volume. Amniotic fluid index is 18.0 cm. Morphology is grossly normal. The cervix is long and closed, 6.1 cm. The placenta is anterior, not associated with the cervical os. The current sonographic age is 20 weeks and 1 day, based on the following measurements: BPD 4.7 cm (20 weeks, 0 days) Head Mmefasgnvzgob51.7 cm (20 weeks, 1 day) Abdominal Dkxzlgjadgzdf64.2 cm (20 weeks, 3 days) Femur Length 3.3 cm (20 weeks, 1 day) PresentationVariable Placenta Anterior Grade I Weight (g) by Percentile 29.1%* These measurements result in an estimated date of delivery of October 13, 2021. The current estimated weight is 343 grams (12 ounces). IMPRESSION: Single, viable intrauterine , current sonographic age of 20 weeks and 1 day, with an estimated date of delivery of October 13, 2021. Estimated date of delivery on the prior examination was October 15, 2021. *Estimated Weight (g) by Percentile is based upon an accurate estimated age based on last menstrual period. Report reported and signed by Panda Baxter on 05/27/2021 1236 Normal [place] Water Quality Specialist ABO, External Resulton 03-02 ABO, External Result b [employer] Phone: C. Trachomatis, External Res ulton 03-02-2021 C. Trachomatis, External Result Negative [employer] Phone: HIV, External Resulton 03-02 HIV, External Result Non-Reactive JONNIE Zadby Phone: Hepatitis B, External Result on 03-02-2021 Hep B, External Result Non-Reactive [employer] Phone: N. Gonorrhoeae, External Res ulton 03-02-2021 N. Gonorrhoeae, External Result Negative [employer] Phone: No Panel InformationOrdered By: Jyoti Aparicio on 03-02-2021 Verified with Tomy Gibson RN We No Panel Informationon 03-02 [employer] Phone: RPR, External Labon 03-02-20 21 RPR, External Result Non-Reactive [facility] Phone: Rh Factor, External ResultOr dered By: Jyoti Aparicio on 03-02-2021 Rh Factor, External Result Positive [employer] Rubella Titer, External Resu lton 03-02-2021 Rubella Titer, External Result Immune [employer] Phone: COVID-19 PCR (Outpatient/ER discharge)on 08-27-2019 REV FROM REF LAB 08/29/19 Normal [facility] Comment on above: Performed By: #### C VDOUTP #### [facility] [address], [place] [address] Elias Salomon SENT TO REF LAB 08/27/19 Normal [facility] Comment on above: Performed By: #### C VDOUTP #### [facility] [address] [place], [place] [address] Elias Salomon Coding Summaryon 02-16-2017 Coding Summary CODING DATE: 017 [facility] STATUS: Home PAYOR: Medicaid HMO ADMIT DX: REASON FOR VISIT DX: H57.8 Other specified disorders of eye and adnexa FINAL DX: PRINCIPAL: H10.9 Unspecified conjunctivitis SECONDARY: PROCEDURES DOCTOR NAME DATE NOTE: The code number assigned matches the documented diagnosis and / or procedure in the patient's chart. However, the narrative phrase printed from the coding software may appear abbreviated, or result in slightly different terminology. Coded By: Ann Campos Date Saved: 02/16/2017 10:18 am Normal [facility] ED Clinical Summaryon 2016 ED Clinical Summary [facility] ? Urgent [address] [id number] clinical SummaryPERSON INFORMATIONName: MITRA BAILEY Age: 22 Years Sex: FEMALEDOB: [birth year] MRN: Acct#:Visit Reason: UC - Eye Redness; UC - Eye Discharge; RIGHT EYE IRRITATION Arrival:02/13/17 10:29:00 Discharge: 02/13/17 11:04:00LOS: 000 00:35 Check In: 02/13/17 10:29:00 Checkout: 02/13/17 11:04:00Address:[address] [address]UZB: KATE, NEIMANPROVIDER INFORMATIONProvider Role Assigned UnassignedEva Lombardo ED Nurse 02/13/17 10:31:19Spasic Jax VÁSQUEZ ED PA 02/13/17 10:32:45VITALS INFORMATIONVital Sign Triage LatestTemperature TympanicTemperature Temporal ArteryPulse RateO2 SatRespiratory Rate 16 br/min 16 br/minBlood Pressure 118 mmHg/70 mmHg 118 mmHg/70 mmHgMEDICAL INFORMATIONMedications Given:Allergy Information:penicillinPHYSICI AN DOCUMENTATIONPatient: MITRA BAILEY : 22 years Sex: FEMALE : [birth year]Associated Diagnoses: ConjunctivitisAuthor: Lupe Perdomo InformationTime seen: Date & time 02/13/17 10:43:00.History source: Patient.Arrival mode: Private vehicle.History limitation: None.Additional information: Chief Complaint from Nursing Triage Note : Chief Itskldjgy74/05/17 10:39 EST Chief Complaint right eye redness and tearing few days .History of Present IllnessPatient is 22-year-old female redness to the right eye. Patient states redness and tearing of last few days. Patient's boyfriend was same symptoms. Allergy to penicillin. Does wear contact lenses, currently wearing glasses. Allergy to penicillin.Review of SystemsEye symptoms: No diplopia, no blurred vision, no blindness. Additional review of systems information: All other systems reviewed and otherwise negative.Health StatusAllergies:Allergic Reactions (Selected)Severity Not DocumentedPenicillin- Hives..Medications: (Selected)Documented MedicationsDocumentedLexapro 20 mg oral tablet: 20 mg, 1 tab(s), PO, Daily, 0 Refill(s)Misc Prescription: 0 Refill(s)PriLOSEC 20 mg oral delayed release capsule: 20 mg, 1 cap(s), PO, Daily, 0 Refill(s).Past Medical/ Family/ Social HistoryMedical history:No active or resolved past medical history items have been selected or recorded..Surgical history:No active procedure history items have been selected or recorded..Family history:No family history items have been selected or recorded..Social history:Social & Psychosocial FxzlluHjzhsep21/05/2017 Smoking tobacco use: Never (less than 100 in l.Problem list:Active Problems (2)AnxietyGERD with esophagitis.Physical Examination Vital SignsVital Signs02/13/17 10:39 EST Temperature Temporal 36.4 DegC Apical Heart Rate 84 bpm Respiratory Rate 16 br/min Systolic Blood Pressure 118 mmHg Diastolic Blood Pressure 70 mmHg.Jzgcterwcirr53/05/17 10:39 EST Height 160 cm Weight 92.99 kg Body Mass Index 36.32 kg/m2.General: Alert, no acute distress.Skin: Warm, dry.Head: Normocephalic, atraumatic.Eye: Erythematous right conjunctiva with purulent discharge.Cardiovascular: Regular rate and rhythm.Respiratory: Lungs are clear to auscultation, respirations are non-labored, breath sounds are equal, Symmetrical chest wall expansion.Back: Normal range of motion.Musculoskeletal: Normal ROM.Neurological: Normal motor observed, normal speech observed.Lymphatics: No lymphadenopathy.Medical Decision MakingDifferential Diagnosis: Conjunctivitis, corneal abrasion.Physical exam findings consistent with conjunctivitis. Patient arrived with a prescription for Bleph-10. Follow-up provided. Instructions for use provided.Impression and PlanDiagnosisConjunctivitis (Discharge, Medical)PlanPrescriptions: Launch prescriptionsPharmacy:Bleph-1 0 ophthalmic solution (Prescribe): 2 drop(s), OPTH, q3hr, for 7 day(s), 2 drops every 3hrs for 7-10days, continue for 48 hours after symptoms have resolved, 15 mL, 0 Refill(s).Patient was given the following educational materials: Bacterial Conjunctivitis, Csnp-mc-Hxfd.Follow up with: DILIA LOVE Continue on antibiotics until the symptoms have resolved for greater than 48 hoursIf the symptoms persist or fail to resolve call to schedule follow up with Dr. Sánchez digital marketing project manager [phone] office located at [address] [place] [address], otherwise follow-up with your primary care provider in 3-5 days.Counseled: Patient, Regarding diagnosis, Regarding diagnostic results, Regarding treatment plan, Regarding prescription, Patient indicated understanding of instructions.DISCHARGE INFORMATION:Discharge Disposition: HomeDischarge Location: HomePATIENT EDUCATION INFORMATIONInstructions: Bacterial Conjunctivitis, Kbqh-nw-JscoDnvzkt-Up:With: Address: When:DILIA LOVE [address] [id number] [facility] (1)Comments:Continue on antibiotics until the symptoms have resolved for greater than 48 hoursIf the symptoms persist or fail to resolve call to schedule follow up with Dr. Sánchez digital marketing project manager [phone] office located at [address] [place] [address], otherwise follow-up with your primary care provider in 3-5 daysDIAGNOSIS:ConjunctivitisC omment: [facility] ED Note - Physicianon 2016 ED Note - Physician Patient: MITRA BAILEY : 22 years Sex: FEMALE : [birth year]Associated Diagnoses: ConjunctivitisAuthor: Lupe Perdomo InformationTime seen: Date & time 02/13/17 10:43:00.History source: Patient.Arrival mode: Private vehicle.History limitation: None.Additional information: Chief Complaint from Nursing Triage Note : Chief Eyvimgpkl43/05/17 10:39 EST Chief Complaint right eye redness and tearing few days .History of Present IllnessPatient is 22-year-old female redness to the right eye. Patient states redness and tearing of last few days. Patient's boyfriend was same symptoms. Allergy to penicillin. Does wear contact lenses, currently wearing glasses. Allergy to penicillin.Review of SystemsEye symptoms: No diplopia, no blurred vision, no blindness. Additional review of systems information: All other systems reviewed and otherwise negative.Health StatusAllergies:Allergic Reactions (Selected)Severity Not DocumentedPenicillin- Hives..Medications: (Selected)Documented MedicationsDocumentedLexapro 20 mg oral tablet: 20 mg, 1 tab(s), PO, Daily, 0 Refill(s)Misc Prescription: 0 Refill(s)PriLOSEC 20 mg oral delayed release capsule: 20 mg, 1 cap(s), PO, Daily, 0 Refill(s).Past Medical/ Family/ Social HistoryMedical history:No active or resolved past medical history items have been selected or recorded..Surgical history:No active procedure history items have been selected or recorded..Family history:No family history items have been selected or recorded..Social history:Social & Psychosocial YxwygqDvwuiuj52/05/2017 Smoking tobacco use: Never (less than 100 in l.Problem list:Active Problems (2)AnxietyGERD with esophagitis.Physical Examination Vital SignsVital Signs02/13/17 10:39 EST Temperature Temporal 36.4 DegC Apical Heart Rate 84 bpm Respiratory Rate 16 br/min Systolic Blood Pressure 118 mmHg Diastolic Blood Pressure 70 mmHg.Yzcemfipubcu54/05/17 10:39 EST Height 160 cm Weight 92.99 kg Body Mass Index 36.32 kg/m2.General: Alert, no acute distress.Skin: Warm, dry.Head: Normocephalic, atraumatic.Eye: Erythematous right conjunctiva with purulent discharge.Cardiovascular: Regular rate and rhythm.Respiratory: Lungs are clear to auscultation, respirations are non-labored, breath sounds are equal, Symmetrical chest wall expansion.Back: Normal range of motion.Musculoskeletal: Normal ROM.Neurological: Normal motor observed, normal speech observed.Lymphatics: No lymphadenopathy.Medical Decision MakingDifferential Diagnosis: Conjunctivitis, corneal abrasion.Physical exam findings consistent with conjunctivitis. Patient arrived with a prescription for Bleph-10. Follow-up provided. Instructions for use provided.Impression and PlanDiagnosisConjunctivitis (Discharge, Medical)PlanPrescriptions: Launch prescriptionsPharmacy:Bleph-1 0 ophthalmic solution (Prescribe): 2 drop(s), OPTH, q3hr, for 7 day(s), 2 drops every 3hrs for 7-10days, continue for 48 hours after symptoms have resolved, 15 mL, 0 Refill(s).Patient was given the following educational materials: Bacterial Conjunctivitis, Xcys-xt-Sfmf.Follow up with: DILIA LOVE Continue on antibiotics until the symptoms have resolved for greater than 48 hoursIf the symptoms persist or fail to resolve call to schedule follow up with Dr. Sánchez digital marketing project manager [phone] office located at [address] [place] [address], otherwise follow-up with your primary care provider in 3-5 days.Counseled: Patient, Regarding diagnosis, Regarding diagnostic results, Regarding treatment plan, Regarding prescription, Patient indicated understanding of instructions.[Electronically Signed on: 02/13/2017 11:01 EST] Jax Perdomo[Verified on: 02/13/2017 11:01 EST] Jax Perdomo Normal [facility] ED Patient Summaryon 017 ED Patient Summary [facility] ? Urgent [address] [place] [address] pATIENT DISCHARGE INSTRUCTIONSPatient InformationName: MITRA BAILEY Age: 22 YearsDate of : [birth year]MRN: [id number] For Visit: UC - Eye Redness; UC - Eye Discharge; RIGHT EYE IRRITATIONArrival Time: 02/13/17 10:29:00Phone: [facility] Care Physician: Clarence LOVE Physician: Spasic PA, AleksandarComment:Patient EducationWith: Address: When:DILIA LOVE [address] [facility] [address] [place] [phone] Business (1)Comments:Continue on antibiotics until the symptoms have resolved for greater than 48 hoursIf the symptoms persist or fail to resolve call to schedule follow up with Dr. Sánchez digital marketing project manager [phone] office located at [address] [place] [address], otherwise follow-up with your primary care provider in 3-5 daysBacterial ConjunctivitisBacterial conjunctivitis (commonly called pink eye) is redness, soreness, or puffiness (inflammation) of the white part of your eye. It is caused by a germ called bacteria. These germs can easily spread from person to person (contagious). Your eye often will become red or pink. Your eye may also become irritated, watery, or have a thick discharge. HOME CARE? Apply a cool, clean washcloth over closed eyelids. Do this for 10?20 minutes, 3?4 times a day while you have pain.? Gently wipe away any fluid coming from the eye with a warm, wet washcloth or cotton ball.? Wash your hands often with soap and water. Use paper towels to dry your hands.? Do not share towels or washcloths.? Change or wash your pillowcase every day.? Do not use eye makeup until the infection is gone.? Do not use machines or drive if your vision is blurry.? Stop using contact lenses. Do not use them again until your doctor says it is okay.? Do not touch the tip of the eye drop bottle or medicine tube with your fingers when you put medicine on the eye.GET HELP RIGHT AWAY IF:? Your eye is not better after 3 days of starting your medicine.? You have a yellowish fluid coming out of the eye.? You have more pain in the eye.? Your eye redness is spreading.? Your vision becomes blurry.? You have a fever or lasting symptoms for more than 2-3 days.? You have a fever and your symptoms suddenly get worse.? You have pain in the face.? Your face gets red or puffy (swollen).MAKE SURE YOU:? Understand these instructions.? Will watch this condition.? Will get help right away if you are not doing well or get worse.This information is not intended to replace advice given to you by your health care provider. Make sure you discuss any questions you have with your health care provider.Document Released: 01/04/2009 Document Revised: 03/14/2013 Document Reviewed: 01/08/2016[employer] Interactive Patient Education ?2016 [employer].Medication Information:The exam and treatment you received today in the [facility] Emergency Department were for an urgent problem and are not intended as complete care. It is important for you to follow up with a doctor, nurse practitioner, or physician?s office assistant receptionist for ongoing care. If your symptoms become worse or you do not improve as expected and you are unable to reach your usual health care provider, you should return to the Emergency Department, we are available 24 hours a day.For those patients who have received Radiology results, the interpretation of your X-ray as given to you by our Emergency Department physician is only a preliminary report. The Radiologist will review your films and if there is a change in the diagnosis you will be notified by phone. Please make sure you have provided a working phone number so we can reach you if necessary.In the event that you had a lab culture while you were a patient in the Emergency Department, you will be notified by phone if there is a need to change your antibiotic. Please make sure you have provided a working phone number so we can reach you if necessary.[facility] Emergency Department has provided you with a complete list of medications post discharge. Please inform your rug receiving clerk/provider of your visit and for further instruction on these medications. Any specific questions regarding your chronic medications and dosages should be discussed with your primary care physician(s) and/or pharmacist. New MedicationsPrinted Prescriptionssulfacetamide sodium ophthalmic (Bleph-10 ophthalmic solution) 2 Drops Ophthalmic Every 3 hours for 7 Days. 2 drops every 3hrs for 7-10days, continue for 48 hours after symptoms have resolved. Refills: 0.Medications to Continue That Have Not ChangedOther Medicationsescitalopram (Lexapro 20 mg oral tablet) 1 tab(s) Oral every day.Misc Prescriptionomeprazole (PriLOSEC 20 mg oral delayed release capsule) 1 cap Oral every day.Visit InformationVisit Diagnosis:Diagnoses This Visit Conjunctivitis UC - Eye Discharge ([id number]) UC - Eye Redness ([id number])If you received any narcotics, sedation, or any other medication that causes drowsiness for the next 24 hours, unless otherwise directed:? Do not drive a car.? Do not operate machinery such as power tools, lawn mowers, drills, sewing machines, or stoves? Avoid alcoholic beverages and drugs for allergies, nerves, or sleep? Do not make important personal or business decisions or sign any legal documentsReason for Visit:right eye redness and tearing few daysAllergies:Substance Reaction Symptoms Type Commentspenicillin hives DrugVital Signs: Vitals and Measurements this Visit (last charted value for your 02/13/2017 visit) Vital Signs This Visit Temperature Temporal: 36.4 DegC Apical Heart Rate: 84 bpm Respiratory Rate: 16 br/min Systolic Blood Pressure: 118 mmHg Diastolic Blood Pressure: 70 mmHg Measurements This Visit Height: 160 cm Weight: 92.99 kg Body Mass Index: 36.32 kg/w4Zvpypugg List:Problem Onset CommentsAnxietyGERD with esophagitisMajor Tests and Procedures:The following procedures and tests were performed during your ED visit.LaboratoryRadiologyCard iology Viruses or BacteriaWhat?s got you sick?Antibiotics only treat bacterial infections. Viral illnesses cannot be treated with antibiotics. When an antibiotic is not prescribed, ask your healthcare professional for tips on how to relieve symptoms and feel better. Usual CauseIllnessVirusesBacteria Antibiotic NeededCold/Runny Nose NOBronchitis/Chest Cold (in otherwise healthy children and adults) NOWhooping Cough YesFlu NOStrep Throat YesSore Throat (except strep) NOFluid in the middle ear (otitis media with effusion) NOUrinary Tract Infection YesAntibiotics Aren?t Always the Answerwww.cdc.gov/getsmart GET SMART Know When Antibiotics Jared.S. Department of Health and Human ServicesCenters for Disease Control and Prevention December 2013 Normal [facility] Urgent Care [address] 017 Urgent Care Record [facility] ? Urgent [address] [place] [address] pATIENT DISCHARGE INSTRUCTIONSPatient InformationName: MITRA BAILEY Age: 22 YearsDate of : 95MRN: [id number] Visit: UC - Eye Redness; UC - Eye Discharge; RIGHT EYE IRRITATIONArrival Time: 02/13/17 10:29:00[facility]: Clarence LOVE Physician: Toby PerdomoandarComment:Visit Diagnosis:Diagnoses This Visit Conjunctivitis-left UC - Eye Discharge ([id number]) UC - Eye Redness ([id number])If you received any narcotics, sedation, or any other medication that causes drowsiness for the next 24 hours, unless otherwise directed:? Do not drive a car.? Do not operate machinery such as power tools, lawn mowers, drills, sewing machines, or stoves? Avoid alcoholic beverages and drugs for allergies, nerves, or sleep? Do not make important personal or business decisions or sign any legal documentsWith: Address: When:DILIA LOVE [id number] [place] [address] Business (1)Comments:Continue on antibiotics until the symptoms have resolved for greater than 48 hoursIf the symptoms persist or fail to resolve call to schedule follow up with Dr. Sánchez digital marketing project manager [phone] office located at [address] [place] [address], otherwise follow-up with your primary care provider in 3-5 daysMedication Information:The exam and treatment you received today in the [facility] were for an urgent problem and are not intended as complete care. It is important for you to follow up with a doctor, nurse practitioner, or physician?s office assistant receptionist for ongoing care. If your symptoms become worse or you do not improve as expected and you are unable to reach your usual health care provider, you should return to the Emergency Department, we are available 24 hours a day.For those patients who have received Radiology results, the interpretation of your X-ray as given to you by our Urgent Care physician is only a preliminary report. The Radiologist will review your films and if there is a change in the diagnosis you will be notified by phone. Please make sure you have provided a working phone number so we can reach you if necessary.In the event that you had a lab culture while you were a patient in the Urgent Care, you will be notified by phone if there is a need to change your antibiotic. Please make sure you have provided a working phone number so we can reach you if necessary.[facility] has provided you with a complete list of medications post discharge. Please inform your rug receiving clerk/provider of your visit and for further instruction on these medications. Any specific questions regarding your chronic medications and dosages should be discussed with your primary care physician(s) and/or pharmacist. New MedicationsPrinted Prescriptionssulfacetamide sodium ophthalmic (Bleph-10 ophthalmic solution) 2 Drops Ophthalmic Every 3 hours for 7 Days. 2 drops every 3hrs for 7-10days, continue for 48 hours after symptoms have resolved. Refills: 0.Medications to Continue That Have Not ChangedOther Medicationsescitalopram (Lexapro 20 mg oral tablet) 1 tab(s) Oral every day.Misc Prescriptionomeprazole (PriLOSEC 20 mg oral delayed release capsule) 1 cap Oral every day.Visit InformationAllergies:Substanc e Reaction Symptoms Type Commentspenicillin hives DrugVital Signs: Vitals and Measurements this Visit (last charted value for your 02/13/2017 visit) Vital Signs This Visit Temperature Temporal: 36.4 DegC Apical Heart Rate: 84 bpm Respiratory Rate: 16 br/min Systolic Blood Pressure: 118 mmHg Diastolic Blood Pressure: 70 mmHg Measurements This Visit Height: 160 cm Weight: 92.99 kg Body Mass Index: 36.32 kg/e8Yaozxokc List:Problem Onset CommentsAnxietyGERD with esophagitis Patient EducationBacterial ConjunctivitisBacterial conjunctivitis (commonly called pink eye) is redness, soreness, or puffiness (inflammation) of the white part of your eye. It is caused by a germ called bacteria. These germs can easily spread from person to person (contagious). Your eye often will become red or pink. Your eye may also become irritated, watery, or have a thick discharge. HOME CARE? Apply a cool, clean washcloth over closed eyelids. Do this for 10?20 minutes, 3?4 times a day while you have pain.? Gently wipe away any fluid coming from the eye with a warm, wet washcloth or cotton ball.? Wash your hands often with soap and water. Use paper towels to dry your hands.? Do not share towels or washcloths.? Change or wash your pillowcase every day.? Do not use eye makeup until the infection is gone.? Do not use machines or drive if your vision is blurry.? Stop using contact lenses. Do not use them again until your doctor says it is okay.? Do not touch the tip of the eye drop bottle or medicine tube with your fingers when you put medicine on the eye.GET HELP RIGHT AWAY IF:? Your eye is not better after 3 days of starting your medicine.? You have a yellowish fluid coming out of the eye.? You have more pain in the eye.? Your eye redness is spreading.? Your vision becomes blurry.? You have a fever or lasting symptoms for more than 2-3 days.? You have a fever and your symptoms suddenly get worse.? You have pain in the face.? Your face gets red or puffy (swollen).MAKE SURE YOU:? Understand these instructions.? Will watch this condition.? Will get help right away if you are not doing well or get worse.This information is not intended to replace advice given to you by your health care provider. Make sure you discuss any questions you have with your health care provider.Document Released: 01/04/2009 Document Revised: 03/14/2013 Document Reviewed: 01/08/2016[employer] Patient Education ?2016 [employer]. Viruses or BacteriaWhat?s got you sick?Antibiotics only treat bacterial infections. Viral illnesses cannot be treated with antibiotics. When an antibiotic is not prescribed, ask your healthcare professional for tips on how to relieve symptoms and feel better. Usual CauseIllnessVirusesBacteria Antibiotic NeededCold/Runny Nose NOBronchitis/Chest Cold (in otherwise healthy children and adults) NOWhooping Cough YesFlu NOStrep Throat YesSore Throat (except strep) NOFluid in the middle ear (otitis media with effusion) NOUrinary Tract Infection YesAntibiotics Aren?t Always the Answerwww.cdc.gov/getsmart GET SMART Know When Antibiotics [place] Department of Health and Human ServicesCenters for Disease Control and Prevention December 2013 [facility] Vital Signs Date Time Vital Sign Value Performing Clinician Facility 05-25-2023 13:05-0500 Body mass index (BMI) [Ratio] 37.31 kg/m2 Cailin Russell CNM Work Phone: [facility] 05-25-2023 13:05-0500 Body weight 92.53 kg Cailin Russell CNM Work Phone: [facility] 05-25-2023 13:05-0500 Diastolic blood pressure 80 mm[Hg] Cailin Russell CNM Work Phone: [facility] 05-25-2023 13:05-0500 Systolic blood pressure 122 mm[Hg] Cailin Russell CNM Work Phone: [facility] 10-07-2021 07:20-0400 Body temperature 98.6 [degF] Cailin Russell VICE PRESIDENT MEDIA RELATIONS - CNM [facility] 10-07-2021 07:20-0400 Diastolic blood pressure 77 mm[Hg] Cailin Russell VICE PRESIDENT MEDIA RELATIONS - CNM Work Phone: [facility] [employer] 10-07-2021 07:20-0400 Heart rate 100 /min Cailin Russell VICE PRESIDENT MEDIA RELATIONS - CNM Work Phone: [facility] [employer] [facility] 10-07-2021 07:20-0400 Respiratory rate 16 /min Cailin Russell VICE PRESIDENT MEDIA RELATIONS - CNM [facility] 10-07-2021 07:20-0400 Systolic blood pressure 139 mm[Hg] Cailin Russell VICE PRESIDENT MEDIA RELATIONS - CNM Work Phone: [employer] 10-06-2021 13:35-0400 SaO2% (BldA) [Mass fraction] 100 % Cailin Russell VICE PRESIDENT MEDIA RELATIONS - CNM Work Phone: [employer] 10-05-2021 13:48-0400 Body height 157.5 cm Cailin Russell APRN - CNM [facility] 10-05-2021 13:48-0400 Body mass index (BMI) [Ratio] 44.99 kg/m2 Cailin Borjaso VICE PRESIDENT MEDIA RELATIONS - CNM [facility] 10-05-2021 13:48-0400 Body weight 111.58 kg Cailin Russell VICE PRESIDENT MEDIA RELATIONS - CNM Work Phone: [facility] [employer] [facility] Encounters Encounter Date Encounter Type Care Provider Facility Start: 09-28-2023 End: 09-28-2023 ambulatory CAILIN L FLORO Not Available Start: 09-21-2023 End: 09-21-2023 ambulatory CAILIN L FLORO Not Available Start: 09-14-2023 End: 09-14-2023 ambulatory CAILIN L FLORO Not Available Start: 08-31-2023 End: 08-31-2023 ambulatory CAILIN L FLORO Not Available Start: 08-17-2023 End: 08-17-2023 ambulatory CAILIN L FLORO Not Available Start: 08-03-2023 End: 08-03-2023 ambulatory CAILIN L FLORO Not Available Start: 06-22-2023 End: 06-22-2023 ambulatory CAILIN L FLORO Not Available Start: 06-16-2023 End: 06-16-2023 ambulatory DILIA T KATE Not Available Start: 05-25-2023 Bamboo flowsheet Cailin L Berto ro CNM Work Phone: [facility] Start: 05-25-2023 Bamboo flowsheet Cailin L Berto ro CNM Work Phone: [facility] Start: 05-25-2023 End: 05-25-2023 ambulatory CAILIN L FLORO Not Available Start: 05-25-2023 End: 05-25-2023 Subsequent care visit Cailin L Floro CNM Work Phone: [facility] Comment on above: Encounter for superv ision of other normal , second trimester (Primary Dx); History of section Start: 04-27-2023 End: 04-27-2023 ambulatory CAILIN RUSSELL Not Available Start: 03-29-2023 End: 03-29-2023 ambulatory CAILIN RUSSELL Not Available Start: 03-29-2023 End: 03-29-2023 Subsequent care visit Cailin Russell CNM Work Phone: [facility] Comment on above: BV (bacterial vagino sis) (Primary Dx) Start: 03-01-2023 End: 03-01-2023 ambulatory CAILIN RUSSELL Not Available Start: 10-05-2021 End: 10-07-2021 Evaluation and management of inpatient CAILIN RUSSELL [facility] Start: 10-05-2021 End: 10-07-2021 Evaluation and management of inpatient Cailin Russell VICE PRESIDENT MEDIA RELATIONS - CNM Work Phone: [facility] Comment on above: delivery de livered (Primary Dx) Start: 08-27-2019 End: 08-27-2019 Patient encounter procedure DOCTOR MISC Facility: Start: 02-13-2017 End: 02-14-2017 [facility] Procedures Date Procedure Procedure Detail Performing Clinician Start: 03-29-2023 SURESWAB(R) ADVANCED VAGINITIS PLUS, TMA Cailin Russell CNM Work Phone: Start: 10-06-2021 Assay of magnesium Betty Russell VICE PRESIDENT MEDIA RELATIONS - CNM Work Phone: Start: 10-05-2021 Antibody screen Cailin Russell VICE PRESIDENT MEDIA RELATIONS - CNM Work Phone: Start: 10-05-2021 Blood typing serolog ic abo Cailin Russell VICE PRESIDENT [employer]ATIONS - CNM Work Phone: Start: 10-05-2021 End: 10-06-2021 Comprehensive metabolic panel Cailin Russell VICE PRESIDENT [employer]ATIONS - CNM Work Phone: Start: 10-05-2021 Urnls dip stick/tabl et rgnt auto w/o microscopy Cailin Russell VICE PRESIDENT MEDIA [employer]ATIONS - CNM Work Phone: Start: 09-16-2021 GBS, EXTERNAL RESULT Hi storical Provider Start: 03-02-2021 ABO, EXTERNAL RESULT Hi storical Provider Start: 03-02-2021 C. TRACHOMATIS, EXTE RNAL RESULT Historical Provider Start: 03-02-2021 HEPATITIS B, EXTERNA L RESULT Historical Provider Start: 03-02-2021 HIV, EXTERNAL RESULT Hi storical Provider Start: 03-02-2021 N. GONORRHOEAE, EXTE RNAL RESULT Historical Provider Start: 03-02-2021 RH FACTOR, EXTERNAL RESULT Historical Provider Start: 03-02-2021 RPR, EXTERNAL RESULT Hi storical Provider Start: 03-02-2021 RUBELLA TITER, EXTER NAL RESULT Historical Provider H/O: section History of section Cailin Russell CNM Work Phone: Plan of Treatment Date Care Activity Detail Author Start: 11-22-2023 End: 11-22-2023 Patient encounter procedure 11/22/2023 9:00 AM EDT Office Visit [facility] [address] [place] [id number] Cailin Russell, CNM [address] [place] [address] [facility] Start: 06-22-2023 End: 06-22-2023 Patient encounter procedure 06/22/2023 1:00 PM EDT Routine [facility] [address] [place] [phone] Cailin Russell, CNM [address] [place] [address] [facility] Start: 05-25-2023 End: 05-25-2023 Professional / ancillary services management 05/25/2023 1:45 PM EST Ancillary Procedure [facility] [address] [phone] [facility] Start: 05-25-2023 End: 05-25-2023 Patient encounter procedure 05/25/2023 1:00 PM EST Routine [facility] [address] [place] [phone] Cailin Russell CNM [address] [place] [address] [facility] Start: 12-10-2022 Influenza vaccination Influenza Vacc ine (#1) [facility] Start: 12-10-2021 Influenza vaccination Flu vacc ine (Season Ended) [facility] Start: 10-05-2021 End: 10-05-2021 Anesthesia consultation 10/05/2021 Anesthesia Event IP Unit Jasbir [address] APRN - [facility] Start: 01-28-2016 Screening for malign ant neoplasm of cervix Pap smear [facility] Start: 2014 DTaP/Tdap/Td vaccine (1 - Tdap) DTaP/Tdap/Td vaccine (1 - Tdap) [facility] Start: 2013 Hepatitis C screening Hepatitis C sc reen [facility] Start: 2010 HIV screening HIV screen [facility] Start: 2007 Depression Screen Depression Screen [facility] Start: 2006 HPV vaccine (1 - 2-d ose series) HPV vaccine (1 - 2-dose series) [facility] Start: 01-28-2000 COVID-19 Vaccine (1) COVID-19 Vaccin e (1) [facility] Start: 01-28-1996 Varicella vaccine (1 of 2 - 2-dose childhood series) Varicella vaccine (1 of 2 - 2-dose childhood series) [facility] [employer] [facility] End: 10-12-2021 Magnesium [Mass/volume] in Serum or Plasma Magnesium Lab Routine Every 6 Hours (Lab) for 7 Days starting 10/05/2021 until 10/12/2021, 4 completed [employer] [facility] Work Phone: Comment on above: Every 6 Hours (Lab) for 7 Days starting 10/05/2021 until 10/12/2021, 4 completed Oxygen therapy [[facility] [place] [place] [facility]] Initiate Oxygen Therapy Protocol Respiratory Care Routine As Needed until discontinued starting 10/05/2021 [employer] Phone: Comment on above: As Needed until disc ontinued starting 10/05/2021 End: 10-05-2021 RHOGAM RHOGAM Blood Bank Routine One Time for 1 Occurrences starting 10/05/2021 until 10/05/2021 [employer] Phone: Comment on above: One Time for 1 Occur rences starting 10/05/2021 until 10/05/2021 Spirometry panel Incentive tj metry Respiratory Care Routine Every 2hr while awake until discontinued starting 10/05/2021 [employer] Phone: Comment on above: Every 2hr while awak e until discontinued starting 10/05/2021 Immunizations Immunization Date Immunization Notes Care Provider Fa [facility] 10-05-2021 diphtheria, tetanus toxoids and acellular pertussis vaccine, unspecified formulation Cailin Suado [employer] Work Phone: [employer] Work Phone: 10-05-2021 measles, mumps and rubella virus vaccine Cailin [employer] Work Phone: [employer] Work Phone: 01-02-2019 influenza virus vaccine, unspecified formulation Cailin [employer] Work Phone: [facility] Payers Date Payer Category Payer Private Health Insurance BERNARD PELAYO [id number] 2021-Present [address] [place] [address] [id number] 2019 Private Health Insurance [id number] 2017 Unknown [id number] 1995 Unknown [id number] [id number] .173 1995 Unknown [id number] 2.16.840.1.498582.3.579.2 .1259 1995 Unknown [id number] 2.16.840.1.278159.3.579.2 .1259 1995 Unknown [id number] 2.16.840.1.760651.3.579.2 .1259 1995 Unknown [id number] 2.16.840.1.628364.3.579.2 .1259 1995 Unknown [id number] 2.16.840.1.065565.3.579.2 .9 1995 Unknown [id number] 2.16.840.1.317711.3.579.2 .1259 1995 Unknown [id number] 2.16.840.1.471729.3.579.2 .9 1995 Unknown [id number] 2.16.840.1.113064.3.579.2 .1259 1995 Unknown [id number] 2.16.840.1.362743.3.579.2 .9 1995 Unknown [id number] 2.16.840.1.609184.3.579.2 .1259 1995 Unknown [id number] 2.16.840.1.099291.3.579.2 .1259 1995 Unknown [id number] 2.16.840.1.083115.3.579.2 .1259 1995 Unknown [id number] 2.16.840.1.133590.3.579.2 .1259 1995 Unknown [id number] 2.16.840.1.716571.3.579.2 .9 1995 Unknown [id number] 2.16.840.1.899515.3.579.2 .1259 1959 Self-pay Unknown [id number] 2.16.840.1.450890.3.579.2 .593 Social History Date Type Detail Facility Start: 10-05-2021 End: 11-18-2022 Tobacco smoking status NHIS Never smoked tobacco [employer] Phone: Start: 1995 Sex Assigned At Not on file [employer] Phone: Start: 11-18-2022 Tobacco use and exposure Smokeless tobacco non-user [facility] Start: 03-01-2023 Alcohol intake Current drinker of alcohol (finding) [facility] Start: 03-01-2023 History of Social function [facility] Start: 03-01-2023 Tobacco use panel [facility] Start: 11-17-2022 Alcohol Comment Alcohol: less than monthly. Caffeine: 1-2 cups/day [facility] Start: 01-16-2023 [facility] Start: 1995 Sex Assigned At Female [facility] Start: 11-11-2022 Gender identity Identifies as female gender (finding) [facility] Start: 11-11-2022 Sexual orientation Heterosexual (finding) [facility] History of Present illness Narrative 05-25-2023 BERTO Fairchild - 05/25/2023 1:00 PM EST Note Date & Type Note Facility 05-25-2023 History of Presen t illness Narrative Subjective No chief complaint on file. Mitra Sewell is a 28 y.o. at 20w3d with a working estimated date of delivery of 10/09/2023, by Last Menstrual Period who presents for a routine visit. She denies vaginal bleeding, leakage of fluid, decreased movements, or contractions. Her is complicated by: n The following portions of the chart were reviewed this encounter and updated as appropriate: Objective Physical Exam weight: 204 lb Expected Total Weight Gain: 11 lb-19 lb Pregravid BMI: 34.01 BP: 122/80 Urine glucose-negative,protein-negative Labs Imaging Assessment/Plan Diagnoses and all orders for this visit: Encounter for supervision of other normal , second trimester History of section Continue vitamin. Labs reviewed. Follow up in 4 weeks for a routine visit. documented in this encounter [facility] History of Present illness Narrative 03-29-2023 Cailin Russell CNM - 03/29/2023 2:30 PM EST Note Date & Type Note Facility 03-29-2023 History of Presen t illness Narrative Subjective No chief complaint on file. Mitra Sewell is a 28 y.o. at 12w2d with a working estimated date of delivery of 10/09/2023, by Last Menstrual Period who presents for a routine visit. She denies vaginal bleeding, leakage of fluid, decreased movements, and contractions. Her is complicated by: history of section The following portions of the chart were reviewed this encounter and updated as appropriate: Objective Physical Exam , Pregravid BMI: 34.01 Expected Total Weight Gain: 11 lb-19 lb Urine glucose-negative,protein-negative Labs Imaging Assessment/Plan Continue vitamin. Labs reviewed. Order placed for anatomy scan at 20 weeks. Follow up in 4 weeks for a routine visit. documented in this encounter [facility] History of Present illness Narrative 10-07-2021 Tami Gramajo RN - 10/07/2021 1:05 PM Shai Perez RN - 10/06/2021 5:04 PM Shai Perez RN - 10/06/2021 1:38 PM GENET Raymond CNM - 10/06/2021 8:00 AM EDT Note Date & Type Note Facility 10-07-2021 History of Present illness Narrative Patient off unit in stable condition. Departure Mode: with significant other. and secured in infant car seat. Mobility at Departure: ambulatory Discharged to: private residence Time of Discharge: 1305 Patient ambulated to bathroom stand by assist, patient independently showered, new gown and linens provided. Patient ambulated back to chair stand by assist, call light in reach, support person at bedside, denies any further needs at this time Per Dr. Dany rawls to discontinue magnesium C/S Labor and Delivery Post Progress Note SUBJECTIVE: 1st day postop primary for non reassuring heart tones; patient had come in with PROM and hypertension in labor. Is on MgSO4 1/2 gram an hour and doing well now. Flatus:Present BM:no Diet: Tolerating regular diet Ambulation: Ambulateswithout difficulty OBJECTIVE: Vitals: BP 119/68 Pulse 96 Temp 97.4 F (36.3 C) (Oral) Resp 16 Ht 5' 2 (1.575 m) Wt 246 lb (111.6 kg) LMP 01/03/2021 (Exact Date) SpO2 100% Unknown BMI 44.99 kg/m Patient Vitals for the past 24 hrs: BP Temp Temp src Pulse Resp SpO2 10/06/21 1640 119/68 96 10/06/21 1340 125/66 (!) 102 10/06/21 1335 100 % 10/06/21 1330 100 % 10/06/21 1325 100 % 10/06/21 1320 100 % 10/06/21 1315 100 % 10/06/21 1310 99 % 10/06/21 1305 100 % 10/06/21 1300 100 % 10/06/21 1255 100 % 10/06/21 1250 100 % 10/06/21 1245 100 % 10/06/21 1240 120/71 100 100 % 10/06/21 1235 100 % 10/06/21 1230 100 % 10/06/21 1225 100 % 10/06/21 1220 100 % 10/06/21 1215 100 % 10/06/21 1210 100 % 10/06/21 1205 100 % 10/06/21 1200 100 % 10/06/21 1155 100 % 10/06/21 1150 100 % 10/06/21 1145 126/75 99 100 % 10/06/21 1140 100 % 10/06/21 1135 100 % 10/06/21 1130 100 % 10/06/21 1125 100 % 10/06/21 1120 100 % 10/06/21 1115 99 % 10/06/21 1110 99 % 10/06/21 1105 99 % 10/06/21 1100 121/64 91 98 % 10/06/21 1055 100 % 10/06/21 1050 99 % 10/06/21 1045 100 % 10/06/21 1040 99 % 10/06/21 1035 99 % 10/06/21 1030 100 % 10/06/21 1025 100 % 10/06/21 1020 99 % 10/06/21 1015 99 % 10/06/21 1010 99 % 10/06/21 1005 100 % 10/06/21 1000 100 % 10/06/21 0955 100 % 10/06/21 0950 100 % 10/06/21 0945 127/79 100 % 10/06/21 0940 96 100 % 10/06/21 0935 100 % 10/06/21 0930 100 % 10/06/21 0925 100 % 10/06/21 0920 100 % 10/06/21 0915 100 % 10/06/21 0910 100 % 10/06/21 0905 100 % 10/06/21 0900 100 % 10/06/21 0855 100 % 10/06/21 0850 100 % 10/06/21 0845 132/73 100 % 10/06/21 0840 93 100 % 10/06/21 0835 100 % 10/06/21 0830 100 % 10/06/21 0825 100 % 10/06/21 0820 100 % 10/06/21 0815 100 % 10/06/21 0810 100 % 10/06/21 0805 100 % 10/06/21 0800 100 % 10/06/21 0720 97.4 F (36.3 C) Oral 16 10/06/21 0641 117/66 (!) 103 99 % 10/06/21 0636 97 % 10/06/21 0631 96 % 10/06/21 0630 16 10/06/21 0626 97 % 10/06/21 0621 96 % 10/06/21 0616 96 % 10/06/21 0611 97 % 10/06/21 0606 96 % 10/06/21 0601 96 % 10/06/21 0556 98 % 10/06/21 0551 96 % 10/06/21 0546 97 % 10/06/21 0541 112/65 (!) 101 97 % 10/06/21 0536 97 % 10/06/21 0531 98 % 10/06/21 0530 16 10/06/21 0526 97 % 10/06/21 0521 98 % 10/06/21 0516 99 % 10/06/21 0511 100 % 10/06/21 0506 100 % 10/06/21 0501 100 % 10/06/21 0456 99 % 10/06/21 0451 99 % 10/06/21 0446 99 % 10/06/21 0441 139/74 (!) 110 99 % 10/06/21 0436 99 % 10/06/21 0431 98 % 10/06/21 0430 16 10/06/21 0426 99 % 10/06/21 0421 99 % 10/06/21 0416 99 % 10/06/21 0411 99 % 10/06/21 0406 99 % 10/06/21 0401 98 % 10/06/21 0356 98 % 10/06/21 0351 99 % 10/06/21 0346 99 % 10/06/21 0341 128/71 (!) 105 99 % 10/06/21 0336 98 % 10/06/21 0331 99 % 10/06/21 0330 98 F (36.7 C) 16 10/06/21 0326 98 % 10/06/21 0321 98 % 10/06/21 0316 99 % 10/06/21 0311 99 % 10/06/21 0306 98 % 10/06/21 0301 99 % 10/06/21 0256 98 % 10/06/21 0251 99 % 10/06/21 0246 99 % 10/06/21 0241 120/61 (!) 105 98 % 10/06/21 0236 98 % 10/06/21 0231 98 % 10/06/21 0230 16 10/06/21 0226 99 % 10/06/21 0221 99 % 10/06/21 0216 99 % 10/06/21 0211 99 % 10/06/21 0206 99 % 10/06/21 0201 99 % 10/06/21 0156 98 % 10/06/21 0151 99 % 10/06/21 0146 99 % 10/06/21 0141 118/62 (!) 103 98 % 10/06/21 0136 98 % 10/06/21 0131 98 % 10/06/21 0130 16 10/06/21 0126 98 % 10/06/21 0121 99 % 10/06/21 0116 98 % 10/06/21 0111 99 % 10/06/21 0106 98 % 10/06/21 0101 98 % 10/06/21 0056 97 % 10/06/21 0051 97 % 10/06/21 0046 97 % 10/06/21 0041 118/65 (!) 106 98 % 10/06/21 0036 99 % 10/06/21 0031 99 % 10/06/21 0026 99 % 10/06/21 0021 99 % 10/06/21 0016 100 % 10/06/21 0011 100 % 10/06/21 0006 99 % 10/06/21 0001 99 % 10/05/21 2356 99 % 10/05/21 2351 99 % 10/05/21 2346 99 % 10/05/21 2343 110/60 (!) 108 10/05/21 2341 99 % 10/05/21 2336 99 % 10/05/21 2331 99 % 10/05/21 2330 16 10/05/21 2326 99 % 10/05/21 2321 99 % 10/05/21 2316 99 % 10/05/21 2311 99 % 10/05/21 2306 99 % 10/05/21 2301 99 % 10/05/21 2256 99 % 10/05/21 2251 99 % 10/05/21 2246 99 % 10/05/21 2241 (!) 111/59 (!) 110 99 % 10/05/21 2236 100 % 10/05/21 2231 99 % 10/05/21 2230 16 10/05/21 2226 99 % 10/05/21 2221 99 % 10/05/21 2216 99 % 10/05/21 2211 99 % 10/05/21 2206 99 % 10/05/21 2201 99 % 10/05/21 2156 99 % 10/05/212150 99 % 10/05/212146 (!) 117/57 (!) 112 10/05/21 214 99 % 10/05/21 214 99 % 10/05/21 213 99 % 10/05/21 213 99 % 10/05/21 2130 99 % 10/05/212125 100 % 10/05/212124 100 % 10/05/212120 99 % 10/05/212115 100 % 10/05/212110 99 % 10/05/212105 99 % 10/05/212100 99 % 10/05/212055 99 % 10/05/212050 99 % 10/05/212045 99 % 10/05/212040 121/72 (!) 113 98 % 10/05/216 98 % 10/05/212030 98 % 10/05/21 2030 16 98 % 10/05/216 99 % 10/05/212020 98 % 10/05/212015 98 % 10/05/212010 98 % 10/05/21 2006 97 % 10/05/21 2001 98 % 10/05/21 1956 98 % 10/05/21 195 98 % 10/05/21 1946 98 % 10/05/21 194 (!) 117/56 (!) 112 98 % 10/05/21 1938 94 % 10/05/21 1936 100 % 10/05/21 1931 100 % 10/05/21 1930 98 F (36.7 C) Oral 16 10/05/21 1926 100 % 10/05/21 1921 100 % 10/05/21 1916 100 % 10/05/21 1911 100 % 10/05/21 1906 100 % 10/05/21 1901 99 % 10/05/21 1841 124/71 (!) 110 100 % 10/05/21 1836 99 % 10/05/21 1833 16 10/05/21 1831 98 % 10/05/21 1826 98 % 10/05/21 1821 99 % 10/05/21 1816 98 % 10/05/21 1811 100 % 10/05/21 1806 100 % 10/05/21 1801 100 % 10/05/21 1756 99 % 10/05/21 1751 99 % 10/05/21 1746 99 % 10/05/21 174 118/70 (!) 106 100 % ABDOMEN: No scars, normal bowel sounds, soft, non-distended, non-tender, no masses palpated, no hepatosplenomegally INCISION: dressing in place, clean, dry and intact GENITAL/URINARY: External Genitalia: General appearance; normal, Hair distribution; normal, Lesions absent Cor: RRR no Murmurs Pulmonary: clear to auscultation anterior and posterior Extremities: no Clubbing cyanosis or ecchymosis DATA: CBC: Lab Results Component Value Date WBC 11.6 10/05/2021 RBC 3.97 10/05/2021 HGB 8.4 10/06/2021 HCT 38.2 10/05/2021 MCV 96.2 10/05/2021 MCH 30.5 10/05/2021 MCHC 31.7 10/05/2021 RDW 13.0 10/05/2021 PLT 263 10/05/2021 MPV 10.1 10/05/2021 ASSESSMENT: Principal Problem: Term Plan: delivered Active Problems: delivery delivered hypertension S/P C/S post op day # 1 PLAN: Continue to wean mag and closely observe. CNM to room for assessment. Patient is uncomfortable and breathing with contractions. She is requesting an epidural at this time. Labs reviewed. LDH normal, UPC ratio is 0.14, blood pressures are elevated. I have initiated orders for Labetalol algorithm and magnesium sulfate. I discussed with patient the [facility] guidelines of transferring to a tertiary care hospital when in need of magnesium sulfate administration. After explaining this to patient and answering all questions, patient refuses to be transferred at this time. There is also the possibility of not accepting her in [facility] as she is 4-5/90/0 station and ruptured and unstable transfer at this time. I offered patient to call [facility] and see if they would accept, and again she refused and states I want to get an epidural, and I want to stay here for delivery. : Dr Nance updated. documented in this encounter [facility] Phone: Evaluation note Note Date & Type Note Facility Evaluation note Diagnosis Term - Primary delivery delivered delivery, without mention of indication, delivered, with or without mention of antepartum condition [facility] Phone: Evaluation note Note Date & Type Note Facility Evaluation note Diagnosis BV (bacterial vaginosis)- Primary Unspecified vaginitis and vulvovaginitis documented in this encounter [facility] Evaluation note Note Date & Type Note Facility Evaluation note Diagnosis Encounter for supervision of other normal , second trimester- Primary History of section Other postprocedural status documented in this encounter [facility] Hospital Discharge instructions Instructions Note Date & Type Note Facility Hospital Discharge instructions Tami Gramajo RN - 10/07/2021 Follow-up with your OB doctor as specified. [facility] OB Department phone: Dr. Goyo THOMSONM Dr. Tran Lombardo [address] [facility] [address] Speed or Flavio Valentina Russell, MSN, VICE PRESIDENT MEDIA RELATIONS, CNM [address] [address] DIET Eat a well balanced diet focusing on foods high in fiber and protein. Drink plenty of fluids especially water. To avoid constipation you may take a mild stool softener as recommended by your doctor or budget examiner. ACTIVITY Gradually increase your activity. Resume exercise regimen only after advice by your doctor or budget examiner. Avoid lifting anything heavier than a gallon of milk for SIX weeks. Avoid driving until your doctor or budget examiner has given their approval. Rise slowly from a lying to sitting and then a standing position. Climb stairs one at a time. Use caution when carrying your baby up and down the stairs. NO SEXUAL Activity for 4-6 weeks or until advised by your doctor; Nothing in vagina: intercourse, tampons, or douching. Be prepared to discuss family planning at your follow-up OB visit. You may feel tired or have a lack of energy. You may continue your vitamin to replenish nutrients post delivery. Nap when baby naps to catch up on sleep. EMOTIONS You may feel leiva, sad, teary, & overwhelmed. Contact your OB provider if you feel you may be showing signs of depression, or have thoughts of harming yourself or your . If will not stop crying, contact another adult for help or place infant in their crib on their back and take a break. NEVER shake your infant. BLEEDING Vaginal bleeding will decrease in amount over the next few weeks. You will notice that as your activity increases, your flow may increase. This is your body's way of telling you, you need to take things easier and rest more often. Call your care provider if you are saturating more than one maxi pad in an hour & resting does not help. BREAST CARE Take medications as recommended by your doctor or budget examiner for pain If you develop a warm, red, tender area on your breast or develop a fever contact your OB provider. For moms: If you become engorged, feeding may be more difficult or painful for 1-2 days. You may find it helpful to hand express some milk so that the infant can latch on more easily. While , continue to take your vitamins as directed by your doctor or budget examiner. Refer to the booklet in the folder/binder for more information. If you feel you need more assistance or have questions, please call Diana Jesus IBCLC, clinical documentation consultant, at or the OB department to schedule an appointment or phone consultation. For more FREE help, visit the Support Group on Tuesday evenings at 7 pm in the OB department. For NON- moms: You may apply ice packs to your breasts over your bra for twenty minutes at a time for comfort. Avoid stimulation to your breasts, when showering allow the water to strike your back not your breasts. Wear a good fitting bra until your milk dries, such as a sports bra. DINA CARE Use the dina-bottle after toileting until bleeding stops. Cleanse your perineum from front to back If used, stitches will dissolve in 4-6 weeks. You may use a sitz bath or soak in a clean tub as needed for comfort. Kegel exercises will help restore bladder control. SWELLING Try to keep your legs elevated when you are sitting. When lying down keep your legs elevated. When wearing stocking or socks, make sure they are not too tight. WHEN TO CALL THE DOCTOR If you have a temp of 100.6 or more. If your bleeding has increased and you are saturating a pad in an hour. Your abdomen is tender to touch. You are passing blood clots bigger than the size of a lemon. If you are experiencing extreme weakness or dizziness. If you are having flu-like symptoms such as achy muscles or joints. There is a foul smell or a green color to your vaginal bleeding. If you have pain that cannot be relieved. You have persistent burning or frequency with urination. Call if you have concerns about your well-being. You are unable to sleep, eat, or are having thoughts of harming yourself or your baby. You have swelling, bleeding, drainage, foul odor, redness, or warmth in/around your incision or stitches. You have a red, warm, tender area in your calf. documented in this encounter [facility] [employer] Phone: Summary Purpose Family History No Family History Records FoundNo Family History Records FoundNo Family History Records FoundNo Family History Records FoundNo Family History Records Found Advance Directives No Advanced Directives Records FoundLatest Code Status on File Code Status Date Activated Date Inactivated Comments Full Code 10/05/2021 4:43 AM 10/05/2021 10:07 AM Additional Source Comments INFORMATION SOURCE (unrecogn ized section and content) DATE CREATED AUTHOR 10/04/2017 [facility] DATE CREATED AUTHOR AUTHOR'S ORGANIZ ATION 08/29/2019 [facility] DATE CREATED AUTHOR AUTHOR'S ORGANIZ ATION 09/21/2021 [facility] DATE CREATED AUTHOR AUTHOR'S ORGANIZ ATION 10/08/2021 [facility] DATE CREATED AUTHOR AUTHOR'S ORGANIZ ATION 09/29/2023 [facility] EPIC Reason for Visit (unrecogniz ed section and content) Reason Comments Rupture of Membranes Contractions Specialty Diagnoses / Procedures Referred By Mago t Referred To Contact Diagnoses Term Cailin Russell APRN - RADHA [address] [place] [address] [facility] [address] [place] [address] Referral ID Status Reason Start Date Expiration Date Visits Re quested Visits Authorized [id number] 1 1 Ordered Prescriptions (unrec ognized section and content) Prescription Sig Dispensed Refills Start Date End Da te escitalopram (LEXAPRO) 20 MG tablet Take 1 tablet by mouth nightly 30 tablet 3 10/07/2021 ibuprofen (ADVIL;MOTRIN) 800 MG tablet Take 1 tablet by mouth every 8 hours as needed for Pain 90 tablet 1 10/07/2021 oxyCODONE (ROXICODONE) 5 MG immediate release tabletIndications:Peter an delivery delivered Take 1 tablet by mouth every 6 hours as needed for Pain for up to 3 days. 12 tablet 0 10/07/2021 10/10/2021 Scheduled Active and Recently Administ ered Medications (unrecognized section and content) Medication Order 10/05/2021 10/06/2021 10/07/2021 citric acid-sodium citrate (BICITRA) solution 30 mL (COMPLETED) 30 mL, Oral, ONCE, 1 dose, On Tue10/05/21 at 0830, Give prior to epidural placement., Labor and Delivery 0803 (Given - Provider: Jyoti Aparicio RN) clindamycin (CLEOCIN) 900 mg in dextrose 5 % 50 mL IVPB (CANCELED) 900 mg, IntraVENous, EVERY 8 HOURS, First dose on Tue10/05/21 at 0645, Until Discontinued, Antimicrobial Indications: Other, Other Abx Indication: questionable PROM, STAT 0656 (New Bag - Provider: Jaime Hurst, MARIBEL)0838 (Stopped - Provider: Jaime Hurst, MARIBEL) docusate sodium (COLACE) capsule 100 mg 100 mg, Oral, 2 TIMES DAILY, First dose on Tue10/05/21 at 1030, Until Discontinued, Do not crush or break., 1309 (Not Given - Provider: Zina Gibson RN - Reason: Patient/family refused)2118 (Given - Provider: Jessika Sullivan RN) 928 (Given - Provider: Olga Perez RN)2142 (Given - Provider: Jaime Hurst, MARIBEL) 08 (Given - Provider: Tami Gramajo, MARIBEL)2099 (Due) enoxaparin (LOVENOX) injection 40 mg 40 mg, SubCUTAneous, EVERY 24 HOURS, First dose on Tue10/05/21 at 2130, Until Discontinued, Indication of Use: Prophylaxis-DVT/PE, 2116 (Given - Provider: Jessika Sullivan RN) 2142 (Given - Provider: Jaime Hurst RN) 2129 (Due) escitalopram (LEXAPRO) tablet 20 mg 20 mg, Oral, NIGHTLY, First dose on Tue10/05/21 at 2200, Until Discontinued 2152 (Given - Provider: Jessika Sullivan RN) 2142 (Given - Provider: Jaime Hurst RN) 2099 (Due) famotidine (PEPCID) 20 mg in sodium chloride (PF) 10 mL injection (COMPLETED) 20 mg, IntraVENous, ONCE, 1 dose, On Tue10/05/21 at 0830, Give 60 minutes before surgery., Labor and Delivery 08 (Given - Provider: Jyoti Aparicio RN) ketorolac (TORADOL) injection 30 mg (COMPLETED) Ketorolac is contraindicated in patients with advanced renal impairment and in patients at risk of renal failure due to volume depletion. For 65 years of age and older OR weight less than 50 kg, use 15 mg IV every 6 hours; MAX dose: 60 mg/day. Dose greater than 30 mg must be administered via intramuscular route. Do not administer for more than 5 days., 30 mg, IntraVENous, EVERY 6 HOURS, 4 doses, First dose on Tue10/05/21 at 1530, Last dose on Tue10/06/21 at 0930, Give in addition to any other pain medication ordered at same time for any pain indication. Discontinue when able to take PO ibuprofen., 1525 (Given - Provider: Jyoti Aparicio RN)2116 (Given - Provider: Jessika Sullivan, MARIBEL) 0328 (Given - Provider: Melissa Fernández, RN)0929 (Given - Provider: Olga Perez RN) labetalol (NORMODYNE;TRANDATE) injection 20 mg (COMPLETED) 20 mg, IntraVENous, ONCE, 1 dose, On Tue10/05/21 at 0615, STAT 0606 (Given - Provider: Jaime Hurst RN) labetalol (NORMODYNE;TRANDATE) injection 40 mg (COMPLETED) 40 mg, IntraVENous, ONCE, 1 dose, On Tue10/05/21 at 0700, STAT 0643 (Given - Provider: Jaime Hurst RN) magnesium sulfate 2000 mg in water 50 mL IVPB (COMPLETED) 2,000 mg, IntraVENous, at 300 mL/hr, Administer over 10 Minutes, ONCE, On Tue10/05/21 at 0645, For 1 dose 0724 (New Bag - Provider: Jyoti Aparicio RN)0734 (Stopped - Provider: Zina Gibson RN) magnesium sulfate 4000 mg in 100 mL IVPB premix (COMPLETED) 4,000 mg, IntraVENous, at 600 mL/hr, Administer over 10 Minutes, ONCE, On Tue10/05/21 at 0645, For 1 dose 0712 (New Bag - Provider: Jaime Hurst RN)0839 (Stopped - Provider: Jaime Hurst RN) metoclopramide (REGLAN) injection 10 mg (COMPLETED) 10 mg, IntraVENous, ONCE, 1 dose, On Tue10/05/21 at 0830, Give 60 minutes before surgery., Labor and Delivery 0803 (Given - Provider: Jyoti Aparicio RN) metroNIDAZOLE (FLAGYL) tablet 500 mg 500 mg, Oral, Every 8 hours, 6 doses, First dose on Tue10/05/21 at 1000, Last dose on Tue10/06/21 at 2200, Antimicrobial Indications: Surgical Prophylaxis 1023 (Not Given - Provider: Jyoti Aparicio RN - Reason: Other - Comment: start at 1400, antibiotic given at surgery)1346 (Given - Provider: Jyoti Aparicio RN)2119 (Given - Provider: Jessika Sullivan, MARIBEL) 0639 (Given - Provider: Melissa Fernández, MARIBEL)1645 (Given - Provider: Olga Perez RN)2142 (Given - Provider: Jaime Hurst, MARIBEL) vitamin 27-1 MG tablet 1 tablet 1 tablet, Oral, DAILY, First dose on Tue10/07/21 at 0900, Until Discontinued, Begin when normal bowel activity resumes., 0801 (Given - Provider: Tami Gramajo, MARIBEL) rho(D) immune globulin (HYPERRHO S/D) injection 300 mcg 300 mcg, IntraMUSCular, ONCE, 1 dose, On Tue10/05/21 at 1030, 1149 (Not Given - Provider: Zina Gibson, MARIBEL - Reason: Order parameters not met - Comment: pt positve blood type) terbutaline (BRETHINE) injection 0.25 mg (COMPLETED) 0.25 mg, SubCUTAneous, ONCE, 1 dose, On Tue10/05/21 at 0645, STAT 0627 (Given - Provider: Jaime Hurst, MARIBEL) owjlnah-dqlppu-zrcbn pertussis (BOOSTRIX) injection 0.5 mL 0.5 mL, IntraMUSCular, PRIOR TO DISCHARGE, 1 dose, Starting on Tue10/05/21 at 1007, Until Discontinued, If not previously administered during at 27-36 weeks as recommended by CDC., Continuous Medication Order 10/05/2021 10/06/2021 10/07/2021 lactated ringers infusion IntraVENous, at 125 mL/hr, CONTINUOUS, Starting on Tue10/05/21 at 1030 1020 (Stopped - Provider: Jyoti Aparicio, MARIBEL)2335 (New Bag - Provider: Melissa Fernández RN) lactated ringers infusion IntraVENous, at 125 mL/hr, CONTINUOUS, Starting on Tue10/05/21 at 1030, 1019 (New Bag - Provider: Jyoti Aparicio RN - Comment: total volume is 125 of 2 seperate ivs)1138 (Rate/Dose Change - Provider: Zina Gibson RN) magnesium sulfate (40863 mg/500mL infusion) (CANCELED) 1,000 mg/hr (25 mL/hr), IntraVENous, CONTINUOUS, Starting on Tue10/05/21 at 0645, Until Tue10/05/21 at 1007, 1000 mg = 1 gram; 2000 mg = 2 grams; 20,000 mg = 20 grams 0734 (New Bag - Provider: Jyoti Aparicio, RN)0734 (NoRateChange - Provider: Kinga Lombardo APRN - JUICE TESTER) magnesium sulfate (76485 mg/500mL infusion) (CANCELED) 2,000 mg/hr (50 mL/hr), IntraVENous, CONTINUOUS, Starting on Tue10/05/21 at 1030, Until Tue10/06/21 at 1339, 1000 mg = 1 gram; 2000 mg = 2 grams; 20,000 mg = 20 grams 1017 (New Bag - Provider: Jyoti Aparicio, RN)1716 (New Bag - Provider: Zina Gibson RN) 0407 (New Bag - Provider: Melissa Fernández RN) magnesium sulfate (49178 mg/500mL infusion) (CANCELED) 1,000 mg/hr (25 mL/hr), IntraVENous, CONTINUOUS, Starting on Tue10/06/21 at 0715, Until Tue10/06/21 at 1339, 1000 mg = 1 gram; 2000 mg = 2 grams; 20,000 mg = 20 grams, For 12 hours 0749 (Rate/Dose Change - Provider: Olga Perez RN) PRN Medication Order 10/05/2021 10/06/2021 10/07/2021 0.9 % sodium chloride infusion IntraVENous, at 5-250 mL/hr, PRN, if patient receiving piggyback infusions and maintenance fluids are not ordered OR KVO fluids to protect IV site / prevent frequent line interruptions/ long duration, Starting on Tue10/05/21 at 1007, For piggyback infusion, administer at same rate as piggyback for a total of 25 mL. Enter 25 mL into dose field and piggyback rate into rate field of order. If piggyback is infusing at a rate less than 100 mL/hr, enter 25 mL into dose field and 100 mL/hr into rate field of order. For KVO fluids, enter rate of 20 mL/hr or less into rate field of order., acetaminophen (TYLENOL) tablet 1,000 mg 1,000 mg, Oral, EVERY 8 HOURS PRN, Starting on Tue10/05/21 at 1007, Until Discontinued, Other, Pain (1-10), Give in addition to any other pain medication ordered at same time for any pain indication. Maximum dose of acetaminophen is 4000mg from all sources in 24 hours. Alternate ibuprofen and acetaminophen every 4 hours., 1637 (Given - Provider: Zina Gibson RN) 0929 (Given - Provider: Olga Perez, MARIBEL)1848 (Given - Provider: Olga Perez RN) 0255 (Given - Provider: Jaime Hurst, MARIBEL) carboprost (HEMABATE) injection 250 mcg 250 mcg, IntraMUSCular, PRN, Starting on Tue10/05/21 at 1007, Until Discontinued, bleeding, May repeat every 15 minutes up to a cumulative maximum dose of 1000 mcg, at physician's request., Post-op diphenhydrAMINE (BENADRYL) injection 25 mg 25 mg, IntraVENous, EVERY 6 HOURS PRN, Starting on Tue10/05/21 at 1007, Until Discontinued, Itching, Hives, ibuprofen (ADVIL;MOTRIN) tablet 800 mg 800 mg, Oral, EVERY 8 HOURS PRN, Starting on Tue10/06/21 at 1530, Until Discontinued, Other, (Pain 1-10), Give in addition to any other pain medication ordered at same time for any pain indication. Once tolerating PO, discontinue Toradol and begin ibuprofen 8 hours after the final dose of Toradol. Alternate ibuprofen and acetaminophen every 4 hours., , 2141 (Given - Provider: Jaime Hurst, MARIBEL) 0801 (Given - Provider: Tami Gramajo RN) lansinoh lanolin ointment Topical, EVERY 1 HOUR PRN, Dry Skin, nipple discomfort, Starting on Tue10/05/21 at 1007, Post-op measles, mumps & rubella vaccine (MMR) injection 0.5 mL 0.5 mL, SubCUTAneous, PRN, 1 dose, Starting on Tue10/05/21 at 1007, Until Discontinued, if non immune or equivical, methylergonovine (METHERGINE) injection 200 mcg 200 mcg, IntraMUSCular, PRN, Starting on Tue10/05/21 at 1007, Until Discontinued, Bleeding, PRN for post- hemorrhage, if not hypertensive., miSOPROStol (CYTOTEC) tablet 800 mcg 800 mcg, Rectal, PRN, 1 dose, Starting on Tue10/05/21 at 1007, Until Discontinued, Post- Hemorrhage, Notify Physician prior to administration., Post-op nalbuphine (NUBAIN) injection 10 mg 10 mg, IntraVENous, EVERY 4 HOURS PRN, Starting on Tue10/05/21 at 1007, Until Discontinued, or itching, Post-op naloxone (NARCAN) injection 0.4 mg 0.4 mg, IntraVENous, PRN, Starting on Tue10/05/21 at 1007, Until Discontinued, Opioid Reversal, Post-op ondansetron (ZOFRAN) injection 4 mg (CANCELED) 4 mg, IntraVENous, EVERY 6 HOURS PRN, Starting on Tue10/05/21 at 0544, Until Tue10/05/21 at 1007, Nausea, Labor and Delivery 0653 (Given - Provider: Jaime Hurst, MARIBEL) ondansetron (ZOFRAN) injection 4 mg 4 mg, IntraVENous, EVERY 6 HOURS PRN, Starting on Tue10/05/21 at 1007, Until Discontinued, Nausea, nausea, ondansetron (ZOFRAN) tablet 4 mg 4 mg, Oral, EVERY 6 HOURS PRN, Starting on Tue10/07/21 at 0240, Until Discontinued, Nausea, Vomiting 0255 (Given - Provider: Jaime Hurst, MARIBEL) oxyCODONE (ROXICODONE) immediate release tablet 10 mg(Linked Group 1) 10 mg, Oral, EVERY 4 HOURS PRN, Starting on Tue10/05/21 at 1007, Until Discontinued, Pain Severe (7-10), oxyCODONE (ROXICODONE) immediate release tablet 5 mg(Linked Group 1) 5 mg, Oral, EVERY 4 HOURS PRN, Starting on Tue10/05/21 at 1007, Until Discontinued, Pain Moderate (4-6), oxytocin (PITOCIN) 10 unit bolus from the bag 166.7 mL (rounded from 166.6667 mL = 10 Units), IntraVENous, PRN, 1 dose, Starting on Tue10/05/21 at 1003, Until Discontinued, Bleeding, Post- use ONLY after delivery of baby/ excessive bleeding/ uterine atony. Bolus for bag to infuse at 909 ml/hour for 11 minutes (10 units in 167ml). oxytocin (PITOCIN) 30 units in 500 mL infusion (COMPLETED) 166 bonifacio-units/min (166 mL/hr), IntraVENous, PRN, 1 dose, Starting on Tue10/05/21 at 0544, Until Tue10/05/21 at 0840, Bleeding, For Post Use Only. Give after delivery of placenta. Following Bolus from bag administration, reduce the rate to166 mL/hr and administer remaining bag, Post Delivery 0840 (New Bag - Provider: Kinga Lombardo, VICE PRESIDENT MEDIA RELATIONS - JUICE TESTER - Comment: open per gravity)0915 (Rate/Dose Change - Provider: Lolis Guerrero, VICE PRESIDENT MEDIA RELATIONS - JUICE TESTER) oxytocin (PITOCIN) 30 units in 500 mL infusion 87.3 bonifacio-units/min (87.3 mL/hr), IntraVENous, CONTINUOUS PRN, Starting on Tue10/05/21 at 1003, Until Tue10/07/21 at 1002, Bleeding, Post- use ONLY after delivery of baby/ excessive bleeding/ uterine atony. Following Bolus from bag administration, reduce the rate to 87.3 mL/hr and administer remaining 20 units over 229 minutes to complete the infusion of 30 units in 500 mL. Do NOT administer more than 1 bag of pitocin without a new order from the physician. 1016 (New Bag - Provider: Jyoti Aparicio RN - Comment: started in or)1138 (Stopped - Provider: Zina Gibson RN) sennosides-docusate sodium (SENOKOT-S) 8.6-50 MG tablet 1 tablet 1 tablet, Oral, DAILY PRN, Starting on Tue10/05/21 at 1007, Until Discontinued, Constipation, simethicone (MYLICON) chewable tablet 80 mg 80 mg, Oral, EVERY 6 HOURS PRN, Starting on Tue10/05/21 at 1007, Until Discontinued, Cramping, Flatulence, sodium chloride flush 0.9 % injection 5-40 mL 5-40 mL, IntraVENous, PRN, Starting on Tue10/05/21 at 1007, Until Discontinued, Line Care, After every IV line use, For Line Patency: Peripheral IV = 5 mL; Midline or Central Line = 10 mL/lumen. If following IV push medication, administer flush at same rate as the IV push. Flush volume is determined by type of infusion therapy being given. For non-viscous solutions use: Peripheral IV = 5 mL Midline or Central Line = 10 mL/lumen For viscous solutions (i.e. blood components, parenteral nutrition, contrast media, or after obtaining blood sample) use: Peripheral IV = 10 mL Midline or Central Line = 20 mL/lumen, 1138 (Given - Provider: Zina Gibson RN) Linked Groups Order Group 1: oxyCODONE (ROXICODONE) immediate release tablet 5 mgJump to med 5 mg, Oral, EVERY 4 HOURS PRN, Starting on Tue10/05/21 at 1007, Until Discontinued, Pain Moderate (4-6), Or oxyCODONE (ROXICODONE) immediate release tablet 10 mgJump to med 10 mg, Oral, EVERY 4 HOURS PRN, Starting on Tue10/05/21 at 1007, Until Discontinued, Pain Severe (7-10), Care Teams (unrecognized sec tion and content) Metal Mine Inspector Relationship Specialty Start Date End Date Rosa Loven DO [place] [id number] [address] PCP - General Family Medicine 10/05/21 Metal Mine Inspector Relationship Specialty Start Date End Date Rosa Loven DO [place] [id number] [address] PCP - General Family Medicine 08/17/22 Metal Mine Inspector Relationship Specialty [place] [id number] [address] PCP - General Family Medicine 08/17/22 Metal Mine Inspector Relationship Specialty Start Date End Date Rosa Loven [place] [id number] [address] PCP - General Family Medicine 08/17/22 FOR RECORDS PERTAINING TO PATIENTS WHO ARE OR HAVE BEEN ENROLLED IN A CHEMICAL DEPENDENCY/SUBSTANCEABUSE PROGRAM, SOME INFORMATION MAY BE OMITTED. This clinical summary was aggregated from multiple sources. Caution should be exercised in using it in the provision of clinical care. This summary normalizes information from multiple sources, and as a consequence, information in this document may materially change the coding, format and clinical context of patient data. In addition, data may be omitted in some cases. CLINICAL DECISIONS SHOULD BE BASED ON THE PRIMARY CLINICAL RECORDS. [employer] [facility] provides no warranty or guarantee of the accuracy or completeness of information in this document.
[2023-10-03] MEDS: LACTATED RINGER'S SOLUTION 1,000 ML 1000 ML IV ×2 (04:50→06:06)
[2023-10-03 05:29] LABS: Basophils Percent Auto 0.1 % (0.2-2.0); Eosinophils Percent Auto 0.3 % (0.9-7.0); Hematocrit 34.1 % (36.0-48.0); Hemoglobin 11.2 g/dL (12.0-16.0); Immature Granulocytes Abs Auto 0.04 10^3/uL (0.00-0.03); Immature Granulocytes Pct Auto 0.4 % (0.0-0.5); Lymphocytes Absolute Auto 1.8 10^3/uL (1.2-3.8); Lymphocytes Percent Auto 20.6 % (20.5-60.0); Mean Corpuscular HGB Conc 32.8 g/dL (29.9-35.2); Mean Corpuscular Hemoglobin 29.1 pg (26.7-34.0); Mean Corpuscular Volume 88.6 fL (81.0-99.0); Mean Platelet Volume 10.6 fL (9.5-13.5); Monocytes Absolute Auto 0.7 10^3/uL (0.3-0.8); Monocytes Percent Auto 7.8 % (1.7-12.0); Neutrophils Absolute Auto 6.3 10^3/uL (1.4-6.5); Neutrophils Percent Auto 70.8 % (43.0-75.0); Platelet Count 266 10^3/uL (150-450); Red Blood Count 3.85 10^6/uL (4.20-5.40); Red Cell Distribution Width 15.1 % (11.0-15.0); White Blood Count 8.9 10^3/uL (4.0-11.0)
[2023-10-03 05:30] LABS: Bilirubin Urine NEGATIVE (NEGATIVE); Blood Urine TRACE-I (NEGATIVE); Clarity Urine CLEAR (CLEAR); Color Urine LT. YELLOW (YELLOW); Glucose Urine UA NEGATIVE (NEGATIVE); Ketones Urine NEGATIVE (NEGATIVE); Leukocyte Esterase Urine NEGATIVE (NEGATIVE); Nitrite Urine NEGATIVE (NEGATIVE); Protein Urine NEGATIVE (NEG/TRACE); Specific Gravity Urine 1.025 (1.005-1.025); Urobilinogen Urine 0.2 EU/dL (0.2-1.0); pH Urine 6.5 (5.0-9.0)
[2023-10-03 05:36] LABS: WBC Urine NONE SEEN #/HPF (NONE SEEN)
[2023-10-03 05:37] LABS: Amorphous Sediment Urine FEW; Bacteria Urine NONE SEEN #/HPF (NONE SEEN); Cast Seen? NONE SEEN #/LPF (NONE SEEN); Crystals Seen? None Seen #/HPF (None Seen); Mucus Urine NONE SEEN (NONE SEEN); Squamous Epithelial Cell Urine FEW #/LPF (NONE/RARE); Urine Culture Indicated NO
[2023-10-03 05:39] LABS: Amphetamine Screen Urine NEGATIVE (NEGATIVE); Barbiturates Screen Urine NEGATIVE (NEGATIVE); Benzodiazepines Screen Urine NEGATIVE (NEGATIVE); Buprenorphine Screen Urine NEGATIVE (NEGATIVE); Cannabinoid Screen Urine NEGATIVE (NEGATIVE); Cocaine Screen Urine NEGATIVE (NEGATIVE); Methadone Screen Urine NEGATIVE (NEGATIVE); Methamphetamines Screen Urine NEGATIVE (NEGATIVE); Opiate Screen Urine NEGATIVE (NEGATIVE); Oxycodone Screen Urine NEGATIVE (NEGATIVE); Phencyclidine Screen Urine NEGATIVE (NEGATIVE); Tricyclic Antidepressant Urine NEGATIVE (NEGATIVE)
--- NOTE | 2023-10-03 05:51 | P.OBHP_ITS ---
OB - H&P: HPI History of Present Illness Chief complaint: C SEC : 3 Para: 1 Gestational age based on last menstrual period: 39.1 History of Present Dating criteria: LMP confirmed by 1st trimester US care: good care Ultrasounds: normal 1st trimester US and normal mid trimester US Medical complications OB: none Labs Blood type: B (+) positive Rubella: immune RPR/VDLR: nonreactive GBS status: negative HBsAG: negative PFSH PFSH Medical History (Updated 10/03/23 @ 06:03 by CAILIN VICTORIA APRN, RADHA) OCD (obsessive compulsive disorder) ?F42.9 - Obsessive-compulsive disorder, unspecified (ICD-10) Anxiety ?F41.9 - Anxiety disorder, unspecified (ICD-10) Pre-eclampsia ?O14.90 - Unspecified pre-eclampsia, unspecified trimester (ICD-10) delivery delivered ?O82 - Encounter for delivery without indication (ICD-10) Surgical History (Updated 10/03/23 @ 06:03 by CAILIN VICTORIA APRN, RADHA) Hx of tonsillectomy ?Z90.89 - Acquired absence of other organs (ICD-10) Family History (Updated 10/03/23 @ 05:12 by Cynthia Alan) Grandfather Family history of diabetes mellitus Brother Family history of hypertension Father Family history of cancer Aunt Family history of cancer Meds Home Medications and Allergies Home Medications ?Medication ?Instructions ?Recorded ?Confirmed ?Type aspirin 81 mg capsule 81 mg PO DAILY 10/03/23 10/03/23 History escitalopram oxalate 20 mg tablet 20 mg PO .HS 10/03/23 10/03/23 History ferrous sulfate 325 mg (65 mg 325 mg PO BID 10/03/23 10/03/23 History iron) tablet (FeroSul) Allergies Allergy/AdvReac Type Severity Reaction Status Date / Time Penicillins Allergy Intermediate Verified 10/03/23 04:27 Exam Constitutional Vital Signs, click to edit/add: Last Vital Signs Temp 98.1 F 10/03/23 04:42 Pulse 101 H 10/03/23 04:44 BP 135/85 10/03/23 04:44 Documenting provider has reviewed patient's vital signs: yes Common normals: no apparent distress, average body habitus, oriented x3, no limitations, healthy appearing, alert and well nourished Orientation/consciousness: Yes awake, Yes oriented to person, Yes oriented to place and Yes oriented to time Eye Common normals: EOMs intact bilaterally General eye: normal appearance of both eyes Neck & C-Spine Common normals: full ROM and no lymphadenopathy Lymph Lymphatic: no lymphadenopathy noted Chest Common normals: inspection of chest normal Respiratory Common normals: normal respiratory effort, no retractions, no use of accessory muscles and clear to auscultation bilaterally Auscultation: clear to auscultation bilaterally Cardio Common normals: regular rate and regular rhythm Rate: regular rate Rhythm: regular rhythm GI Common normals: Normal to inspection, nondistended, normoactive bowel sounds present Inspection: normal to inspection Auscultation: normoactive bowel sounds Palpation: soft Common normals: no CVA tenderness Back & Pelvis Common normals: no CVA tenderness Extremity Common normals: normal to inspection, full ROM, normal capillary refill, no joint enlargement, no clubbing, cyanosis or edema, no calf tenderness and no pedal edema Neuro Common normals: oriented x3 Psych Common normals: mental status grossly normal, thought process normal and cooperative Results Labs Labs: Short CBC 10/03/23 Range/Units 04:50 WBC 8.9 (4.0-11.0) 10^3/uL Hgb 11.2 L (12.0-16.0) g/dL Hct 34.1 L (36.0-48.0) % Plt Count 266 (150-450) 10^3/uL Urine 10/03/23 Range/Units 04:30 Urine Color Lt. yellow (YELLOW) Urine Clarity Clear (CLEAR) Urine pH 6.5 (5.0-9.0) Ur Specific [place] 1.025 (1.005-1.025) Urine Protein Negative (NEG/TRACE) mg/dL Urine Glucose (UA) Negative (NEGATIVE) mg/dL OB - A/P Assessment and Plan (1) Term : (2) Previous section: Plan patient has SROM at 0330 at home. Admitted to L&D for repeat section today
[2023-10-03] MEDS: CITRIC ACID/SODIUM CITRATE 30 ML SOLUTION ORACIT SHOHL'S SOLN PO (06:43)
[2023-10-03] MEDS: FAMOTIDINE/PF 20 MG/2 ML VIAL IV (06:44)
[2023-10-03] MEDS: METOCLOPRAMIDE HCL 10 MG/2 ML VIAL IVP (06:46)
[2023-10-03] MEDS: CLINDAMYCIN PHOSPHATE/D5W 900 MG/50 ML PIGGYBACK 100 MG IV ×2 (07:07→15:20)
--- NOTE | 2023-10-03 07:14 | W.PC.ACHO ---
Registration Status: ADM IN Primary Language: Vietnamese Preferred Language: Vietnamese Report given to JOSE LÓPEZ and Lily Mehta RN. Active Medications Generic Name Dose Route Start Last Admin Trade Name Ashishq PRN Reason Stop Dose Admin Escitalopram Oxalate 20 mg 10/03/23 22:00 Escitalopram 10 Mg Tablet PO HS VINCENZO Lactated Ringer's 1,000 mls @ 125 mls/hr 10/03/23 04:30 Lactated Ringers IV .Q8H VINCENZO Consults Category Date Time Status Consult to Anesthesiology Routine Cons 10/03/23 Ordered IV Insertion/Site Date of IV Line Insertion [ 10/03/23 Short PIV (<1.75 in) 20g right Hand] IV Insertion Time [Short PIV ( 04:50 <1.75 in) 20g right Hand] Neurology Patient orientation (short person,place,time,situation list) Catheter Urinary Catheter Date of 10/03/23 Insertion [Urethral] Urinary Catheter Time of 06:16 Insertion [Urethral]
[2023-10-03] MEDS: LACTATED RINGER'S SOLUTION 1,000 ML 50 ML IV (07:43)
--- NOTE | 2023-10-03 08:21 | P.ON_ITS ---
Brief Operative Note Date of procedure: 10/03/23 Pre-op diagnosis general: iup at 39wks, previous c/s, srom Post-op diagnosis: same as pre-op Procedure: NAME OF PROCEDURE: [ section ] PROCEDURE: Patient was taken back to the Operating Room where she was given a spinal anesthesia with Duramorph without difficulty. She was prepped and draped in the normal sterile fashion. A Pfannenstiel skin incision was then made 2 cm above the symphysis pubis and carried down to underlying rectus fascia using a Bovie. The fascia was incised in the midline and extended laterally using [place] scissors. Two [place] clamps were placed on the superior aspect of the fascia and dissected off the underlying rectus muscles. The same was performed on the inferior aspect as well. The muscles were then in the midline. Peritoneum was identified and entered bluntly. The peritoneum was then extended superiorly and inferiorly with good visualization of the bladder. The bladder blade was inserted. A low transverse incision was made on the patient's uterus and extended laterally digitally. The was then delivered atraumatically after the bladder blade was removed in the cephalic position. The cord was clamped and cut. Cord blood was obtained. The infant was handed off to awaiting team. The patient's placenta was spontaneously delivered. The uterus was then exteriorized. The uterus was cleared of all clots and debris. The bladder blade was reinserted. The patient's uterine incision was closed using #0 Vicryl in a running lock fashion. Excellent hemostasis was assured. The uterus was then returned to the patient's abdomen. The patient's abdomen was copiously irrigated using warm saline. Peritoneal gutters were cleared of all clots and debris. Again excellent hemostasis was assured. The patient's peritoneum was closed using 3-0 Vicryl in a running fashion. The patient's fascia was closed using #0 Vicryl in a running fashion. The patient's skin was closed using 4-0 Vicryl subcuticularly. The patient tolerated the procedure well. Sponge, lap, and needle counts were correct x2. The patient was taken to the Recovery Room in stable condition. Anesthesia: spinal Surgeon: Greyson Granda Program Services Assistant: CAILIN VICTORIA Estimated blood loss (mL): 575 Pathology: other (placenta) Condition: stable Disposition: PACU Urinary Catheter Management Urinary Catheter Management Urethral: Cath placed during this visit: yes Urethral indwelling: No Insertion date: 10/03/23 Insertion time: 06:16
--- NOTE | 2023-10-03 08:22 | P.OBPRC_ITS ---
Procedure Pre-op/Post-op diagnoses: Pre-Op/Post-Op Diagnoses Operation Date: 10/03/23 07:30 <No data on this case meets the specified criteria> Procedure: Procedures Operation Date: 10/03/23 07:30 Actual Procedure Side Surgeon p Not Applicable Greyson Granda DO Eligibility And Occupancy Interviewer: CAILIN VICTORIA Estimated blood loss (mL): 575 Disposition: PACU Anesthesia type: Spinal
[2023-10-03] MEDS: BUPIVACAINE HCL 0.5% PF 50 MG/10 ML VIAL 20 ML INJ (08:46)
[2023-10-03] MEDS: BUPIVACAINE LIPOSOME/PF 266 MG/13.3 ML VIAL INJ (08:46)
[2023-10-03] MEDS: 0.9 % SODIUM CHLORIDE 10 ML VIAL 20 ML INJ (08:46)
--- NOTE | 2023-10-03 08:49 | PM.EN ---
Event Note Event Note: 1st Assist Note: I first assisted Dr Granda with repeat section. I assisted as directed by physician. I independently closed the SQ layer with 3-0 vicryl without difficulty. I then indenpendently close the incision with 4-0 vicryl without difficulty. Hemostasis noted at completion of closure. patient tolerated procedure well
[2023-10-03] MEDS: OXYTOCIN/0.9 % SODIUM CHLORIDE 20 UNITS/1,000 ML PLAST..BAG 125 UNIT IV (10:15)
[2023-10-03] MEDS: KETOROLAC TROMETHAMINE 30 MG/ML VIAL IVP ×3 (10:15→21:04)
[2023-10-03] MEDS: ACETAMINOPHEN 500 MG TABLET 1000 MG PO (18:32)
[2023-10-03] MEDS: ENOXAPARIN SODIUM 40 MG/0.4 ML SYRINGE SUBQ (21:03)
[2023-10-03] MEDS: ESCITALOPRAM 10 MG TABLET 20 MG PO (21:03)
[2023-10-04] VITALS (7 sets, daily range): BP systolic 103–124; BP diastolic 54–63; PULSE 78–86; TEMP 35.9–36.6
[2023-10-04] MEDS: ACETAMINOPHEN 500 MG TABLET 1000 MG PO ×2 (02:44→13:28)
[2023-10-04] MEDS: IBUPROFEN 400 MG TABLET 800 MG PO ×3 (03:59→18:00)
[2023-10-04 06:20] LABS: Basophils Percent Auto 0.1 % (0.2-2.0); Eosinophils Percent Auto 0.1 % (0.9-7.0); Hematocrit 26.6 % (36.0-48.0); Hemoglobin 8.5 g/dL (12.0-16.0); Immature Granulocytes Abs Auto 0.05 10^3/uL (0.00-0.03); Immature Granulocytes Pct Auto 0.5 % (0.0-0.5); Lymphocytes Percent Auto 17.8 % (20.5-60.0); Mean Corpuscular Hemoglobin 28.7 pg (26.7-34.0); Mean Corpuscular Volume 89.9 fL (81.0-99.0); Monocytes Absolute Auto 0.9 10^3/uL (0.3-0.8); Monocytes Percent Auto 8.4 % (1.7-12.0); Neutrophils Absolute Auto 8.1 10^3/uL (1.4-6.5); Neutrophils Percent Auto 73.1 % (43.0-75.0); Platelet Count 211 10^3/uL (150-450); Red Blood Count 2.96 10^6/uL (4.20-5.40); Red Cell Distribution Width 15.3 % (11.0-15.0); White Blood Count 11.1 10^3/uL (4.0-11.0)
--- NOTE | 2023-10-04 08:21 | P.OBPN_ITS ---
OB - PN: Subj Subjective Patient comments: no complaints and pain well controlled [place] status: doing well Exam Constitutional Vital Signs, click to edit/add: Last Vital Signs Temp 96.6 F L 10/04/23 04:01 Pulse 80 10/04/23 04:01 Resp 16 10/03/23 19:41 BP 103/59 10/04/23 04:01 Pulse Ox 96 10/03/23 08:55 O2 Del Method Room Air 10/04/23 01:11 Documenting provider has reviewed patient's vital signs: yes Common normals: no apparent distress Respiratory Common normals: normal respiratory effort and clear to auscultation bilaterally Cardio Common normals: regular rate and regular rhythm GI Common normals: Normal to inspection, nondistended, normoactive bowel sounds present Extremity Common normals: no clubbing, cyanosis or edema and no calf tenderness Results Labs Labs: Short CBC 10/04/23 Range/Units 06:05 WBC 11.1 H (4.0-11.0) 10^3/uL Hgb 8.5 L (12.0-16.0) g/dL Hct 26.6 L (36.0-48.0) % Plt Count 211 (150-450) 10^3/uL Urinary Catheter Management Urinary Catheter Management Urethral: Cath placed during this visit: yes, but has since been removed by the gianluca bee Urethral indwelling: No Insertion date: 10/03/23 Insertion time: 06:16 Removal date: 10/04/23 Removal time: 05:50 OB - PN: A/P Assessment and Plan (1) Term : (2) Previous section: Plan - day: 1 Plan: routine postop care Time Spent with Patient Time: Total time spent is greater than 50% in coordination of care (as documented) at patient's floor/unit and/or counseling patient: Total time spent with greater than 50% in coordination of care (as documented) at patient's floor/unit and/or counseling patient: less than 15 minutes
[2023-10-04] MEDS: DOCUSATE SODIUM 100 MG CAPSULE PO ×2 (10:01→21:27)
--- NOTE | 2023-10-04 19:50 | PC.NURSE ---
1706: Agree with Jessika Thomas patient assessment.
[2023-10-04] MEDS: ESCITALOPRAM 10 MG TABLET 20 MG PO (21:26)
[2023-10-04] MEDS: ENOXAPARIN SODIUM 40 MG/0.4 ML SYRINGE SUBQ (21:26)
[2023-10-05] VITALS: BP 120/63; PULSE 80; TEMP 36.7
[2023-10-05] MEDS: IBUPROFEN 400 MG TABLET 800 MG PO (03:39)
--- NOTE | 2023-10-05 07:54 | P.OBPN_ITS ---
OB - PN: Subj Subjective Patient comments: no complaints and pain well controlled [place] status: doing well Exam Constitutional Vital Signs, click to edit/add: Last Vital Signs Temp 98.0 F 10/05/23 00:00 Pulse 80 10/05/23 00:00 Resp 16 10/05/23 00:00 BP 120/63 10/05/23 00:00 Pulse Ox 96 10/03/23 08:55 O2 Del Method Room Air 10/05/23 00:00 Documenting provider has reviewed patient's vital signs: yes Common normals: no apparent distress Respiratory Common normals: normal respiratory effort and clear to auscultation bilaterally Cardio Common normals: regular rate and regular rhythm GI Common normals: Normal to inspection, nondistended, normoactive bowel sounds present Extremity Common normals: normal to inspection and no clubbing, cyanosis or edema Urinary Catheter Management Urinary Catheter Management Urethral: Cath placed during this visit: yes, but has since been removed by the nurse Urethral indwelling: No Insertion date: 10/03/23 Insertion time: 06:16 Removal date: 10/04/23 Removal time: 05:50 OB - PN: A/P Assessment and Plan (1) Term : (2) Previous section: Plan - day: 2 Plan: routine postop care, discharge home and other (fu 1wk) Time Spent with Patient Time: Total time spent is greater than 50% in coordination of care (as documented) at patient's floor/unit and/or counseling patient: Total time spent with greater than 50% in coordination of care (as documented) at patient's floor/unit and/or counseling patient: less than 15 minutes
[2023-10-05 08:11] VITALS: BP 114/61; PULSE 76
--- NOTE | 2023-10-05 12:22 | PC.NURSE ---
Given handout for breast care and drying up milk supply with discussion. Verbalized understanding.
== END 2023-10-05 12:00 | disposition home or self-care (01) | DRG 788 ==
PROVIDERS: Obstetrics & Gynecology; Admitting Provider Midwife; Visit Provider Midwife
PROC: 10D00Z1 Extraction of Products of Conception, Low, Open Approach (ICD-10-PCS; CPT 59514; principal; 2023-10-03 07:30)
DX: O34.211 Maternal care for low transverse scar from previous cesarean delivery (principal); Z3A.39 39 weeks gestation of pregnancy; Z37.0 Single live birth; O99.344 Other mental disorders complicating childbirth; F41.9 Anxiety disorder, unspecified; Z88.0 Allergy status to penicillin; Z79.899 Other long term (current) drug therapy; Z79.82 Long term (current) use of aspirin; Z23 Encounter for immunization
CPT/HCPCS: 36415; 51702; 59050; 64488; 80307; 81001; 85025; 86850; 86900; 86901; 88307; 94667; 94668; 96372; 96374; 96375; J0131; J0665; J0736; J1100; J1650; J1885; J2274; J2371; J2405; J2590; J2765